=== PATIENT | female | born 1990 | race Caucasian/White ===

== ENCOUNTER 2016-10-30 11:32 | Observation (INO) | payer OTHER ==
[~2016-10-30] VITALS: Ht 162.6 cm; Wt 82.0 kg
[~2016-10-30 11:32] MED LIST: IBUP600 PO; OXYC1SOL5 PO; PRENCAP6 PO
[2016-10-30 11:33] VITALS: BP 142/92; PULSE 80; RESP 20; TEMP 98.1; O2SAT 96
--- NOTE | 2016-10-30 11:43 | PD ---
Physical Exam Time Seen by Provider: 11:42 Narrative 26 y/o female here with upper abdominal pain that radiates into the back/chest which started at 7AM. +Nausea. Vital signs reviewed. seen at triage desk. Awaiting bed placement. Data Data Last Documented VS Vital Signs Date Time Temp Pulse Resp B/P Pulse Ox O2 Delivery O2 Flow Rate FiO2 10/30/16 11:33 98.1 80 20 142/92 96 Room Air [facility] Medical Record Reviewed: Yes Supervised Visit with FER: Az Ferro Oct 30, 2016 11:43
[2016-10-30] MEDS ORDERED: SODIUM CHLOR 0.9% 1000 ML INJ 1,000 ML IV SCH (11:56)
[2016-10-30] MEDS ORDERED: MORPHINE SULFATE 4 MG/ML INJ IV PUSH ONE ×2 (12:00→12:15)
[2016-10-30] MEDS ORDERED: FAMOTIDINE 20 MG/2 ML VIAL IV PUSH ONE (12:00)
[2016-10-30] MEDS ORDERED: ONDANSETRON HCL 4 MG/2 ML VIAL IVP ONE (12:00)
--- NOTE | 2016-10-30 12:04 | PD ---
HPI Chief Complaint: Abdominal Pain Time Seen by Provider: 13:42 Travel History International Travel<30 days: No Contact w/Intl Traveler<30days: No Traveled to known affect area: No History of Present Illness HPI 26- year old female presents to the ED complaining of RUQ abdominal pain. She reports the pain started yesterday afternoon, but worsened this morning around 7am. She describes the pain as constant, rates it as a 6-8/10, nothing makes the pain better or worse, and it radiates to the her chest and back. She reports that she has a history of gallstones and usually takes Tylenol and it makes it better. She states she has taken 4 Tylenol prior to arrival but had no relief. She reports nausea associated with the pain, but denies any vomiting, diarrhea, or constipation. Her last BM was two days ago and reports that is normal for her. She smokes 1/2 ppd, and denies any alcohol, or drug use. PFSH Past Medical History Asthma: Yes ?: Not LMP: 10/02/16 Past Surgical History Section: Yes Social History Alcohol Use: No Tobacco Use: Yes (1/2 pack a day ) Substance Use: No Allergies-Medications (Allergen,Severity, Reaction): Coded Allergies: No Known Allergies (Unverified , 10/30/16) Reported Meds & Prescriptions Reported Meds & Active Scripts Active No Active Prescriptions or Reported Medications Review of Systems General / Constitutional: No: Fever, Chills, Weight Gain, Weight Loss, Other Eyes: No: Diploplia, Blurred Vision, Photophobia, Drainage, Redness, Foreign Body Sensation, Pain, Tearing, Blind Spots, Visual changes, Blindness, Other HENT: No: Headaches, Vertigo, Lightheadedness, Sore Throat, Rhinitis, Rhinorrhea, Congestion, Nosebleed, Neck Stiffness, Neck Pain, Masses, Gingival Bleeding, Dental Difficulties, Ear Discharge, Earache, Other Cardiovascular: No: Chest Pain or Discomfort, Palpitations, Irregular Rhythm, Tachycardia, Diaphoresis, Syncope, Dyspnea on exertion, Varicosities, Edema, Cyanosis, Varicosities, Phlebitis, Claudication, Other Respiratory: No: Cough, Shortness of Breath, Wheezing, Sneezing, Orthopnea, Hemoptysis, Stridor, Night Sweats, Pleuritic Pain, Other Gastrointestinal: Positive: Nausea, Abdominal Pain, No: Vomiting, Diarrhea, Hematemesis, Hematochezia, Constipation, Changes in Bowel Habits, Indigestion, Dysphagia, Loss of Appetite, Other Genitourinary: No: Urgency, Frequency, Dysuria, Nocturia, Hematuria, Decreased Urinary Output, Oliguria, Hesitancy, Dribbling, Incontinence, Pelvic Pain, Flank Pain, Dyspareunia, Discharge, Dysmenorrhea, Menorrhagia, Metorrhagia, Vaginal Bleeding, Other Musculoskeletal: Positive: Pain, No: Myalgias, Arthralgias, Limited ROM, Weakness, Cramping, Edema, Atrophy Skin: No Rash, No Itching, No Dryness, No Lumps, No Hives, No Change in Pigmentation, No Change in nails, No Alopecia, No Lesions, No Breast Lumps, No Breast Tenderness, No Breast Swelling, No Other Neurologic: No: Weakness, Dizziness, Syncope, Focal Abnormalities, Coordination Problem, Tremor, Ataxia, Headache, Change in Mentation, Slurred Speech, Paresthesia, Incontinence, Seizures, Sensory Disturbance, Other Physical Exam Narrative GENERAL: SKIN: Warm and dry. HEAD: Atraumatic. Normocephalic. EYES: Pupils equal and round. No scleral icterus. No injection or drainage. ENT: No nasal bleeding or discharge. Mucous membranes pink and moist. NECK: Trachea midline. No JVD. CARDIOVASCULAR: Regular rate and rhythm. No S3, S4, murmurs, rubs, gallops, or clicks. RESPIRATORY: No accessory muscle use. Clear to auscultation. Breath sounds equal bilaterally. GASTROINTESTINAL: Tender to palpation in RUQ with positive murphis sign on exam. Abdomen soft, nondistended. Hepatic and splenic margins not palpable. MUSCULOSKELETAL: Extremities without clubbing, cyanosis, or edema. No obvious deformities. NEUROLOGICAL: Awake and alert. No obvious cranial nerve deficits. Motor grossly within normal limits. Five out of 5 muscle strength in the arms and legs. Normal speech. PSYCHIATRIC: Appropriate mood and affect; insight and judgment normal. Data Data Last Documented VS Vital Signs Date Time Temp Pulse Resp B/P Pulse Ox O2 Delivery O2 Flow Rate FiO2 10/30/16 13:25 97.8 78 16 136/69 99 Room Air Orders Complete Blood Count With Diff (10/30/16 11:56) Comprehensive Metabolic Panel (10/30/16 11:56) Lipase (10/30/16 11:56) Lactic Acid (10/30/16 11:56) Urinalysis - C+S If Indicated (10/30/16 11:56) Iv Access Insert/Monitor (10/30/16 11:56) Morphine Inj (Morphine Inj) (10/30/16 12:00) Ondansetron Inj (Zofran Inj) (10/30/16 12:00) Sodium Chlor 0.9% 1000 Ml Inj (Ns 1000 M (10/30/16 11:56) Famotidine Inj (Pepcid Inj) (10/30/16 12:00) Us Abdomen Gallbladder (10/30/16 ) Morphine Inj (Morphine Inj) (10/30/16 12:15) Piperacil-Tazo 3.375 Gm Premix (Zosyn 3. (10/30/16 13:30) Admit Order (Ed Use Only) (10/30/16 13:37) Hydromorphone Pf Inj (Dilaudid Pf Inj) (10/30/16 13:45) Labs Laboratory Tests Test 10/30/16 10/30/16 12:14 12:20 White Blood Count 11.8 TH/MM3 Red Blood Count 4.86 MIL/MM3 Hemoglobin 13.0 GM/DL Hematocrit 39.5 % Mean Corpuscular Volume 81.3 FL Mean Corpuscular Hemoglobin 26.8 PG Mean Corpuscular Hemoglobin 32.9 % Concent Red Cell Distribution Width 14.5 % Platelet Count 303 TH/MM3 Mean Platelet Volume 8.7 FL Neutrophils (%) (Auto) 62.5 % Lymphocytes (%) (Auto) 27.7 % Monocytes (%) (Auto) 7.4 % Eosinophils (%) (Auto) 2.0 % Basophils (%) (Auto) 0.4 % Neutrophils # (Auto) 7.4 TH/MM3 Lymphocytes # (Auto) 3.3 TH/MM3 Monocytes # (Auto) 0.9 TH/MM3 Eosinophils # (Auto) 0.2 TH/MM3 Basophils # (Auto) 0.0 TH/MM3 CBC Comment DIFF FINAL Differential Comment Urine Color YELLOW Urine Turbidity HAZY Urine pH 5.5 Urine Specific [place] 1.029 Urine Protein TRACE mg/dL Urine Glucose (UA) NEG mg/dL Urine Ketones NEG mg/dL Urine Occult Blood NEG Urine Nitrite NEG Urine Bilirubin NEG Urine Urobilinogen LESS THAN 2.0 MG/DL Urine Leukocyte Esterase MOD Urine RBC 2 /hpf Urine WBC 5 /hpf Urine Squamous Epithelial 26 /hpf Cells Urine Bacteria RARE /hpf Urine Mucus FEW /lpf Microscopic Urinalysis Comment CULT NOT INDICATED Sodium Level 141 MEQ/L Potassium Level 4.8 MEQ/L Chloride Level 105 MEQ/L Carbon Dioxide Level 30.5 MEQ/L Anion Gap 6 MEQ/L Blood Urea Nitrogen 15 MG/DL Creatinine 0.75 MG/DL Estimat Glomerular Filtration 93 ML/MIN Rate Random Glucose 98 MG/DL Calcium Level 9.0 MG/DL Total Bilirubin 0.3 MG/DL Aspartate Amino Transf 108 U/L (AST/SGOT) Alanine Aminotransferase 224 U/L (ALT/SGPT) Alkaline Phosphatase 134 U/L Total Protein 7.6 GM/DL Albumin 3.9 GM/DL Lipase 103 U/L Lactic Acid Level 2.0 mmol/L MDM Medical Decision Making Medical Screen Exam Complete: Yes Emergency Medical Condition: Yes Medical Record Reviewed: Yes Interpretation(s) CBC & BMP Diagram 10/30/16 12:14 LFTs elevated Lipase WNL Last Impressions Gall Bladder Ultrasound 10/30/16 0000 Signed Impressions: Service Date/Time: October 12:32 - CONCLUSION: 1. Abnormal gallbladder containing stones and sludge with positive sonographic Marie's sign. Findings are suspicious for acute cholecystitis. 2. Mild hepatomegaly. Ulises Machado MD Differential Diagnosis Cholelithiasis Pancreatitis Nephrolithiasis Gastritis PUD Narrative Course 26-year-old female that presents to the ED for evaluation of right upper quadrant pain. Patient was properly examined and was found to have signs and symptoms very consistent what appears to be acute cholecystitis. Labs and imaging confirmed diagnosis. Case was discussed with Dr. Agosto who agrees admission to his service. Case was discussed with . labs were evaluated the patient and agrees with the plan. Patient and family were told of need for surgery and likely removal of the gallbladder to improve symptoms. They're in agreement with admission plan. Diagnosis Primary Impression: Acute cholecystitis Additional Impression: Cholelithiasis Qualified Code: K80.62 - Calculus of gallbladder and bile duct with acute cholecystitis without obstruction Admitting Information Admitting Physician Requests: Admit Scripts No Active Prescriptions or Reported Meds Jason Verduzco Oct 30, 2016 12:04
[2016-10-30 12:42] LABS: AUTOMATED NEUTROPHIL # 7.4 TH/MM3 (1.8-7.7); BASOPHIL % 0.4 % (0.0-2.0); EOSINOPHIL # 0.2 TH/MM3 (0-0.4); HEMATOCRIT 39.5 % (35.0-46.0); HEMO FLAGS DIFF FINAL; LYMPH % 27.7 % (9.0-44.0); LYMPHOCYTE # 3.3 TH/MM3 (1.0-4.8); MEAN CELL VOLUME 81.3 FL (80.0-100.0); MEAN CORPUSCULAR HEMOGLOBIN 26.8 PG (27.0-34.0); MEAN CORPUSCULAR HGB CONC 32.9 % (32.0-36.0); MONO % 7.4 % (0.0-8.0); NEUT % 62.5 % (16.0-70.0); PLATELET COUNT 303 TH/MM3 (150-450); RED BLOOD COUNT 4.86 MIL/MM3 (4.00-5.30); RED CELL DISTRIBUTION WIDTH 14.5 % (11.6-17.2); WHITE BLOOD COUNT 11.8 TH/MM3 (4.0-11.0)
[2016-10-30 12:45] LABS: BACTERIA, URINE RARE /hpf; BLOOD, URINE NEG (NEG); COMMENT (UR) CULT NOT INDICATED; CULTURE IF INDICATED CULT NOT INDICATED; GLUCOSE,URINE NEG (NEG); KETONE, URINE NEG (NEG); MUCUS URINE FEW /lpf (OCC); NITRITE,URINE NEG (NEG); PH, URINE 5.5 (5.0-8.5); SQUAMOUS EPITHELIAL CELL URINE 26 /hpf (0-5); URINE COLOR YELLOW (YELLW/STRAW)
--- NOTE | 2016-10-30 13:10 | RADRPT ---
EXAM DATE/TIME: 10/30/2016 12:32 [facility] COMPARISON: No previous studies available for comparison. INDICATIONS : Abdominal pain with nausea since this morning. MEDICAL HISTORY : Asthma. SURGICAL HISTORY : section. ENCOUNTER: Initial ACUITY: 1 day PAIN SCORE: 8/10 LOCATION: Right upper quadrant MEASUREMENTS: LIVER: 21.1 cm length COMMON DUCT: 4 mm RIGHT KIDNEY: 12.2 x 5.3 x 5.0 cm FINDINGS: LIVER: Normal echotexture without focal lesion or ductal dilatation. Main portal vein is patent with hepatop edal blood flow. COMMON DUCT: No intraluminal mass or stone visualized. GALLBLADDER: There are stones and sludge within the gallbladder. The wall thickness measures 4 mm. There is no per icholecystic fluid. Shackler reports a positive sonographic Marie sign. PANCREAS: The visualized portions are within normal limits. RIGHT KIDNEY: No evidence of hydronephrosis, stone, or mass. CONCLUSION: 1. Abnormal gallbladder containing stones and sludge with positive sonographic Marie's sign. Finding s are suspicious for acute cholecystitis. 2. Mild hepatomegaly. Ulises Machado MD on October 30, 2016 at 13:06 Board Certified Radiologist. This report was verified electronically.
[2016-10-30 13:25] VITALS: BP 136/69; PULSE 78; RESP 16; TEMP 97.8; O2SAT 99
[2016-10-30 13:27] LABS: ALT (GPT) 224 U/L (10-53); ANION GAP 6 MEQ/L (5-15); AST (GOT) 108 U/L (15-37); BICARBONATE 30.5 MEQ/L (21.0-32.0); BLOOD UREA NITROGEN 15 MG/DL (7-18); CHLORIDE 105 MEQ/L (98-107); GLOMERULAR FILTRATION RATE 93 ML/MIN (>89); POTASSIUM 4.8 MEQ/L (3.5-5.1); SODIUM (NA) 141 MEQ/L (136-145)
[2016-10-30 13:29] LABS: ALKALINE PHOSPHATASE 134 U/L (45-117); TOTAL BILIRUBIN ADULT 0.3 MG/DL (0.2-1.0)
--- NOTE | 2016-10-30 13:29 | PD ---
Physical Exam Narrative I, Dr. Lynn, have reviewed the advance practice practitioner's documentation and am in agreement, met with the patient face to face, made the diagnosis, and the medical decision making was done by me. *My assessment and Findings: Acute cholecystitis vs. biliary colic vs. pancreatitis 26yo F with PMH of cholelithiasis presents to the ED with c/o RUQ that started last night. Pain went away but return this morning. Pain is in RUQ and radiates to right upper back. +Nausea. Denies any fever, vomiting. Labs reviewed, WBC 11.8. Lactic acid 2.0. UA showed moderate leukocyte. Culture not indicated. US gallbladder showed abnormal bladder containing stones and sludge with positive sonographic Marie's sign. Findings suspicious for acute cholecystitis. My PA discussed with general surgeon Dr. Agosto and will be admitted to his service. IV zosyn ordered. Data Data Last Documented VS Vital Signs Date Time Temp Pulse Resp B/P Pulse Ox O2 Delivery O2 Flow Rate FiO2 10/30/16 12:18 16 10/30/16 11:33 98.1 80 142/92 96 Room Air Orders Complete Blood Count With Diff (10/30/16 11:56) Comprehensive Metabolic Panel (10/30/16 11:56) Lipase (10/30/16 11:56) Lactic Acid (10/30/16 11:56) Urinalysis - C+S If Indicated (10/30/16 11:56) Iv Access Insert/Monitor (10/30/16 11:56) Morphine Inj (Morphine Inj) (10/30/16 12:00) Ondansetron Inj (Zofran Inj) (10/30/16 12:00) Sodium Chlor 0.9% 1000 Ml Inj (Ns 1000 M (10/30/16 11:56) Famotidine Inj (Pepcid Inj) (10/30/16 12:00) Us Abdomen Gallbladder (10/30/16 ) Morphine Inj (Morphine Inj) (10/30/16 12:15) Piperacil-Tazo 3.375 Gm Premix (Zosyn 3. (10/30/16 13:30) Labs Laboratory Tests Test 10/30/16 10/30/16 12:14 12:20 White Blood Count 11.8 TH/MM3 Red Blood Count 4.86 MIL/MM3 Hemoglobin 13.0 GM/DL Hematocrit 39.5 % Mean Corpuscular Volume 81.3 FL Mean Corpuscular Hemoglobin 26.8 PG Mean Corpuscular Hemoglobin 32.9 % Concent Red Cell Distribution Width 14.5 % Platelet Count 303 TH/MM3 Mean Platelet Volume 8.7 FL Neutrophils (%) (Auto) 62.5 % Lymphocytes (%) (Auto) 27.7 % Monocytes (%) (Auto) 7.4 % Eosinophils (%) (Auto) 2.0 % Basophils (%) (Auto) 0.4 % Neutrophils # (Auto) 7.4 TH/MM3 Lymphocytes # (Auto) 3.3 TH/MM3 Monocytes # (Auto) 0.9 TH/MM3 Eosinophils # (Auto) 0.2 TH/MM3 Basophils # (Auto) 0.0 TH/MM3 CBC Comment DIFF FINAL Differential Comment Urine Color YELLOW Urine Turbidity HAZY Urine pH 5.5 Urine Specific [place] 1.029 Urine Protein TRACE mg/dL Urine Glucose (UA) NEG mg/dL Urine Ketones NEG mg/dL Urine Occult Blood NEG Urine Nitrite NEG Urine Bilirubin NEG Urine Urobilinogen LESS THAN 2.0 MG/DL Urine Leukocyte Esterase MOD Urine RBC 2 /hpf Urine WBC 5 /hpf Urine Squamous Epithelial 26 /hpf Cells Urine Bacteria RARE /hpf Urine Mucus FEW /lpf Microscopic Urinalysis Comment CULT NOT INDICATED Lactic Acid Level 2.0 mmol/L MDM Supervised Visit with FER: Yes Diagnosis Primary Impression: Acute cholecystitis Admitting Information Admitting Physician Requests: Admit Scripts No Active Prescriptions or Reported Meds Nuria Lynn DO Oct 30, 2016 13:29
[2016-10-30] MEDS ORDERED: PIPERACIL-TAZO 3.375 GM PREMIX 50 ML IV ONE (13:30)
[2016-10-30] MEDS ORDERED: SODIUM CHLORIDE 0.9% FLUSH 10 ML FLUSH IV FLUSH PRN (13:45)
[2016-10-30] MEDS ORDERED: ONDANSETRON HCL 4 MG/2 ML VIAL IV PRN (13:45)
[2016-10-30] MEDS ORDERED: diphenhydrAMINE HCL 50 MG/ML VIAL IV PRN (13:45)
[2016-10-30] MEDS ORDERED: HYDROmorphone HCL PF 1 MG/ML VIAL IV PUSH ONE (13:45)
[2016-10-30] MEDS ORDERED: MORPHINE SULFATE 4 MG/ML INJ IV PUSH PRN ×2 (13:45)
[2016-10-30 14:33] VITALS: BP 119/64; PULSE 86; RESP 17; TEMP 97.8; O2SAT 99
[2016-10-30] MEDS: SODIUM CHLOR 0.9% 1000 ML INJ 1,000 ML IV SCH ×2 (15:01→23:40)
[2016-10-30 16:28] VITALS: BP 102/69; TEMP 97.9
--- NOTE | 2016-10-30 16:41 | HHI.HP ---
HPI Service General Surgery Primary Care Physician Afsaneh Ibarra MD Admission Diagnosis acute cholecysititis with cholelithiasis Chief Complaint: Abdominal pain History of Present Illness 26 yo F with severe RUQ and epigastric pain. She has known gallstones since last year when she was having episodes of upper abdominal pain. She has had multiple episodes that usually last for less than 30 minutes. Yesterday she had an episode of epigastric and right upper quadrant pain associated with nausea which was quite severe. However this morning she had an even more severe episode which was worse than labor. It radiated to her right upper quadrant back and and chest. She was evaluated in the emergency department and noted to have leukocytosis and gallbladder ultrasound showed gallstones and mild wall thickness. AST ALT and alkaline phosphatase are mildly elevated. Past surgical history includes . Review of Systems Constitutional: DENIES: Fever, Chills Eyes: DENIES: Eye inflammation, Eye pain Respiratory: DENIES: Cough, Wheezing Cardiovascular: DENIES: Chest pain, Palpitations Gastrointestinal: COMPLAINS OF: Abdominal pain, Nausea Musculoskeletal: DENIES: Stiffness, Joint Swelling Integumentary: DENIES: Pruritus, Rash Neurologic: DENIES: Seizures, Tremor Past Family Social History Past Medical History None Past Surgical History Reported Medications Reported Meds & Active Scripts Active No Active Prescriptions or Reported Medications Allergies: Coded Allergies: No Known Allergies (Unverified , 10/30/16) Active Ordered Medications Current Medications Medications (Trade) Dose Ordered Sig/Dorys Route Start Time Stop Time Status Last Admin (NS 1000 ml Inj) 1,000 ml @ 100 mls/hr Q10H IV 10/30/16 13:40 10/30/16 15:01 (NS Flush) 2 ml UNSCH PRN IV FLUSH 10/30/16 13:45 Sodium Chloride 2 ml 2 ml BID IV FLUSH 10/30/16 21:00 (Zosyn 4.5 Gm Premix) 100 ml @ 200 mls/hr Q6H IV 10/30/16 18:00 (Zofran Inj) 4 mg Q6H PRN IV 10/30/16 13:45 (Benadryl Inj) 25 mg Q6H PRN IV 10/30/16 13:45 (Morphine Inj) 2 mg Q3H PRN IV PUSH 10/30/16 13:45 (Morphine Inj) 4 mg Q3H PRN IV PUSH 10/30/16 13:45 Family History noncontributory Social History Smokes half pack of cigarettes daily. No alcohol use. Physical Exam Vital Signs Vital Signs Date Time Temp Pulse Resp B/P Pulse Ox O2 Delivery O2 Flow Rate FiO2 10/30/16 14:33 97.8 86 17 119/64 99 Room Air 10/30/16 14:16 17 10/30/16 13:25 97.8 78 16 136/69 99 Room Air 10/30/16 12:18 16 10/30/16 12:10 16 10/30/16 11:33 98.1 80 20 142/92 96 Room Air Physical Exam GENERAL: Awake and alert. No acute distress. Cooperative. HEAD: Normocephalic. Atraumatic. EYES: Pupils equal round and reactive to light bilaterally. No scleral icterus. CHEST: Lungs clear to auscultation bilaterally with no wheezing or rhonchi. No respiratory distress. CARDIOVASCULAR: Regular rate and rhythm. ABDOMEN: Soft. Mild epigastric and right upper quadrant tenderness to palpation. EXTREMITIES: No cyanosis or edema. SKIN: Warm, dry, nonjaundiced. Laboratory Laboratory Tests Test 10/30/16 10/30/16 12:14 12:20 White Blood Count 11.8 Red Blood Count 4.86 Hemoglobin 13.0 Hematocrit 39.5 Mean Corpuscular Volume 81.3 Mean Corpuscular Hemoglobin 26.8 Mean Corpuscular Hemoglobin 32.9 Concent Red Cell Distribution Width 14.5 Platelet Count 303 Mean Platelet Volume 8.7 Neutrophils (%) (Auto) 62.5 Lymphocytes (%) (Auto) 27.7 Monocytes (%) (Auto) 7.4 Eosinophils (%) (Auto) 2.0 Basophils (%) (Auto) 0.4 Neutrophils # (Auto) 7.4 Lymphocytes # (Auto) 3.3 Monocytes # (Auto) 0.9 Eosinophils # (Auto) 0.2 Basophils # (Auto) 0.0 CBC Comment DIFF FINAL Differential Comment Urine Color YELLOW Urine Turbidity HAZY Urine pH 5.5 Urine Specific [place] 1.029 Urine Protein TRACE Urine Glucose (UA) NEG Urine Ketones NEG Urine Occult Blood NEG Urine Nitrite NEG Urine Bilirubin NEG Urine Urobilinogen LESS THAN 2.0 Urine Leukocyte Esterase MOD Urine RBC 2 Urine WBC 5 Urine Squamous Epithelial 26 Cells Urine Bacteria RARE Urine Mucus FEW Microscopic Urinalysis Comment CULT NOT INDICATED Sodium Level 141 Potassium Level 4.8 Chloride Level 105 Carbon Dioxide Level 30.5 Anion Gap 6 Blood Urea Nitrogen 15 Creatinine 0.75 Estimat Glomerular Filtration 93 Rate Random Glucose 98 Calcium Level 9.0 Total Bilirubin 0.3 Aspartate Amino Transf 108 (AST/SGOT) Alanine Aminotransferase 224 (ALT/SGPT) Alkaline Phosphatase 134 Total Protein 7.6 Albumin 3.9 Lipase 103 Lactic Acid Level 2.0 Result Diagram: 10/30/16 1214 10/30/16 1214 Imaging Last Impressions Gall Bladder Ultrasound 10/30/16 0000 Signed Impressions: Service Date/Time: , October 30, 2016 12:32 - CONCLUSION: 1. Abnormal gallbladder containing stones and sludge with positive sonographic Marie's sign. Findings are suspicious for acute cholecystitis. 2. Mild hepatomegaly. Ulises Machado MD Assessment and Plan Assessment and Plan 26-year-old female who has evaluation consistent with acute cholecystitis. I recommend to proceed with laparoscopic possible open cholecystectomy. I discussed details and risks of the surgery with the patient and her significant other and mother. She desires to proceed. This will be performed tomorrow morning. She will be given Zosyn overnight. Juan Agosto MD Oct 30, 2016 16:41
[2016-10-30 17:09] VITALS: BP 132/67; PULSE 78; RESP 17; TEMP 98.2; O2SAT 98
[2016-10-30] MEDS: PIPERACIL-TAZO 4.5 GM PREMIX 100 ML IV SCH ×2 (18:00→23:42)
[2016-10-30] MEDS: SODIUM CHLORIDE 0.9% FLUSH 10 ML FLUSH IV FLUSH SCH (19:47)
[2016-10-30 20:00] VITALS: BP 139/71; PULSE 79; RESP 17; TEMP 96.2; O2SAT 98
[2016-10-31] VITALS: BP 126/65; PULSE 60; RESP 17; TEMP 96.8; O2SAT 98
[2016-10-31] MEDS: PIPERACIL-TAZO 4.5 GM PREMIX 100 ML IV SCH ×2 (05:06→10:44)
[2016-10-31] MEDS ORDERED: SODIUM CHLORID 0.9% 500 ML IV PRN (05:15)
[2016-10-31] MEDS ORDERED: LACTATED RINGER'S 1000 ML IV PRN (05:15)
[2016-10-31 06:12] LABS: INDIRECT BILIRUBIN 0.4 MG/DL (0.0-0.8); TOTAL BILIRUBIN ADULT 0.5 MG/DL (0.2-1.0)
[2016-10-31 08:00] VITALS: BP 109/53; PULSE 66; RESP 17; TEMP 97.7; O2SAT 97
[2016-10-31] MEDS ORDERED: ACETAMINOPHEN 1000 MG/100 ML VIAL IV ONE (08:44)
[2016-10-31] MEDS ORDERED: fentaNYL CITRATE 250 MCG/5 ML AMP ONE (08:44)
[2016-10-31] MEDS: SODIUM CHLORIDE 0.9% FLUSH 10 ML FLUSH IV FLUSH SCH (09:00)
[2016-10-31] MEDS ORDERED: FAMOTIDINE 20 MG/2 ML VIAL ONE (10:03)
[2016-10-31] MEDS ORDERED: MIDAZOLAM HCL 2 MG/2 ML VIAL ONE (10:03)
[2016-10-31] MEDS ORDERED: BUPIVACAINE/EPINEPHRINE 0.25% PF 30 ML VIAL INFIL ONE (10:28)
--- NOTE | 2016-10-31 11:10 | PD.OP ---
cc: Juan Agosto MD Operative Report Date of Surgery: Oct 31, 2016 Preoperative Diagnosis: (1) Acute cholecystitis Postoperative Diagnosis: (1) Acute cholecystitis Procedure: Laparoscopic cholecystectomy Anesthesia: GETA Surgeon: Juan Agosto Advertising Rep(s): Bill [employer]ILDING [employer] Operation and Findings: Complications: None apparent EBL: 10 cc Operative findings: The gallbladder was enlarged and inflamed with very edematous and thickened gallbladder wall. There were multiple large stones present. Procedure in detail: The patient was taken to the operating room and placed in the supine position. General endotracheal anesthesia was induced. The abdomen was prepped and draped in usual sterile fashion and a surgical timeout was performed to verify correct patient procedure and site. Appropriate perioperative antibiotics were administered. Local anesthetic was injected in the skin and subcutaneous tissue superior to the umbilicus and a 5 mm incision performed. The abdomen was entered using the Optiview 5 mm trocar with direct laparoscopic visualization. The abdomen was then insufflated to 15 mmHg with CO2 gas which the patient tolerated well. Next a 12 mm port was placed in the epigastrium and two 5 mm ports in the right upper quadrant and right lateral abdomen. The patient was placed in reverse Trendelenburg position and turned slightly to the left. Attention was turned to the right upper quadrant and the dome of the gallbladder was grasped and retracted cephalad. The gallbladder was very large with a very edematous wall and multiple large stones present. The infundibulum was retracted laterally to expose Calot's triangle. Blunt dissection and judicious use of electrocautery was used to expose the cystic duct and the cystic artery directly entering the gallbladder. Two clips were placed proximally on each of these structures and one distally and they were transected. The gallbladder was then removed from the liver bed using electrocautery. Hemostasis was achieved. The gallbladder was then removed from the abdomen using an Endo Catch bag. The clips were in place on the cystic duct and cystic artery stumps with no bleeding or bile leakage. The 12 mm port site fascia was closed with a fascial closure device using 0 Vicryl suture. At this point, the abdomen was allowed to desufflate and trochars were removed. Skin was closed with subcuticular 4-0 Monocryl as well as Dermabond. The patient tolerated the procedure well and was extubated and taken to PACU in stable condition. All sponge and instrument counts were correct. Juan Agosto MD Oct 31, 2016 11:10
[2016-10-31] MEDS ORDERED: HYDR-3516 PO (11:12)
[2016-10-31] MEDS ORDERED: ACETAMINOPHEN/HYDROcodone 325 MG/5 MG TAB PO PRN (11:15)
[2016-10-31] MEDS ORDERED: DO NOT ADM ANY ANTICOAGULANT DRUGS PRN (11:23)
[2016-10-31] MEDS ORDERED: *PROMETHAZINE 25 MG/ML VIAL PERIprocedural use ONLY ONE (11:37)
[2016-10-31] MEDS ORDERED: *morphine SULFATE 8 MG/ML PERIprocedure ONLY ONE (11:48)
[2016-10-31] MEDS ORDERED: PIPERACILLIN TAZO IV ONE (12:00)
[2016-10-31] MEDS ORDERED: LACTATED RINGER'S 1000 ML INJ 1,000 ML IV ONE (12:00)
[2016-10-31] MEDS ORDERED: PROPOFOL 200 MG/20 ML AMP IV ONE (12:00)
[2016-10-31] MEDS ORDERED: ONDANSETRON HCL 4 MG/2 ML VIAL IV PUSH ONE (12:00)
[2016-10-31] MEDS ORDERED: NEOSTIGMINE 3 MG/3 ML SYR IV ONE (12:00)
[2016-10-31] MEDS: ACETAMINOPHEN/HYDROcodone 325 MG/5 MG TAB PO PRN ×2 (12:39→18:03)
[2016-10-31 16:00] VITALS: BP 117/59; PULSE 66; RESP 18; TEMP 96.5; O2SAT 97
== END 2016-10-31 18:12 | disposition home or self-care (01) ==
LOC: NEPD 11:32 → NEDA 13:39 → N07B 16:52
PROVIDERS: ADMIT Surgery; ATTEND Surgery
PROC: 0FT44ZZ Resection of Gallbladder, Percutaneous Endoscopic Approach (ICD-10-PCS; principal; 2016-10-30)
DX: K80.12 Calculus of gallbladder with acute and chronic cholecystitis without obstruction (principal)
CPT/HCPCS: 00790; 47562; 76705; 80053; 80076; 81001; 83605; 83690; 85025; 88304; 96361; 96365; 96375; 96376; 99285; G0378; J0131; J1170; J2250; J2270; J2405; J2543; J2550; J2710; J3010; J7030; J7120

== ENCOUNTER 2017-04-29 22:40 | Emergency (ER) | payer OTHER ==
[~2017-04-29] VITALS: Ht 165.1 cm; Wt 88.0 kg
[~2017-04-29 22:40] MED LIST changes: +HYDR-3516 PO; -IBUP600 PO; -OXYC1SOL5 PO; -PRENCAP6 PO
[2017-04-29 22:42] VITALS: BP 146/69; PULSE 77; RESP 16; TEMP 98.7; O2SAT 97
[2017-04-29] MEDS ORDERED: PRENTAB7 PO (22:52)
--- NOTE | 2017-04-29 23:08 | PD ---
HPI Chief Complaint: Abdominal Pain Time Seen by Provider: 23:05 Travel History International Travel<30 days: No Contact w/Intl Traveler<30days: No Traveled to known affect area: No History of Present Illness HPI 27-year-old female presents to the emergency department by private transportation for complaint of multiple episodes of nausea and vomiting. Patient is 8 weeks . Patient is followed by Dr. Ibarra. Patient is 5 para 1 AB 3. No fever no chills no cough no congestion. Patient's had nausea and vomiting and upper abdominal discomfort. Patient is status post cholecystectomy. Patient denies hematemesis coffee-ground emesis or bilious emesis. No dysuria frequency or urgency. Patient has had no lower abdominal pain pelvic pain vaginal discharge vaginal bleeding or fluid leak. Epigastric discomfort is 1/10 in intensity. PFSH Past Medical History Narrative Medical Asthma, preeclampsia, AB 3; , cholecystectomy; no tobacco use: Nursing notes reviewed Asthma: Yes Diminished Hearing: No Musculoskeletal: No Neurologic: No Respiratory: Yes Tetanus Vaccination: Unknown Influenza Vaccination: No ?: LMP: 03/05/2017 Past Surgical History Section: Yes Cholecystectomy: Yes Pacemaker: No Social History Alcohol Use: No Tobacco Use: Yes (weaning off smoking) Substance Use: No Allergies-Medications (Allergen,Severity, Reaction): Coded Allergies: No Known Allergies (Unverified Adverse Reaction, Unknown, 04/29/17) Reported Meds & Prescriptions Reported Meds & Active Scripts Active Reported Vitamins Tablet (Pnv No.95/Ferrous Fum/Folic AC) 28 Mg Iron-800 Mcg Tablet 1 Tab PO DAILY Review of Systems Except as stated in HPI: all other systems reviewed are Neg Physical Exam Narrative GENERAL: Well-developed well-nourished obese female in no acute distress no respiratory distress SKIN: Warm and dry. HEAD: Normocephalic. EYES: No scleral icterus. No injection or drainage. NECK: Supple, trachea midline. No JVD or lymphadenopathy. CARDIOVASCULAR: Regular rate and rhythm without murmurs, gallops, or rubs. RESPIRATORY: Breath sounds equal bilaterally. No accessory muscle use. GASTROINTESTINAL: Abdomen soft, non-tender, nondistended. MUSCULOSKELETAL: No cyanosis, or edema. BACK: Nontender without obvious deformity. No CVA tenderness. Data Data Last Documented VS Vital Signs Date Time Temp Pulse Resp B/P (MAP) Pulse Ox O2 Delivery O2 Flow Rate FiO2 04/30/17 00:20 79 16 123/74 (90) 99 Room Air 04/29/17 22:42 98.7 Orders Orders Complete Blood Count With Diff (04/29/17 23:05) Comprehensive Metabolic Panel (04/29/17 23:05) Urinalysis - C+S If Indicated (04/29/17 23:05) Us Abdomen Liver (04/30/17 ) Lipase (04/29/17 23:15) Labs Laboratory Tests Test 04/29/17 23:15 04/29/17 23:58 White Blood Count 10.3 TH/MM3 Red Blood Count 4.76 MIL/MM3 Hemoglobin 13.6 GM/DL Hematocrit 39.5 % Mean Corpuscular Volume 82.9 FL Mean Corpuscular Hemoglobin 28.6 PG Mean Corpuscular Hemoglobin Concent 34.5 % Red Cell Distribution Width 15.2 % Platelet Count 275 TH/MM3 Mean Platelet Volume 8.4 FL Neutrophils (%) (Auto) 53.4 % Lymphocytes (%) (Auto) 37.6 % Monocytes (%) (Auto) 6.6 % Eosinophils (%) (Auto) 1.8 % Basophils (%) (Auto) 0.6 % Neutrophils # (Auto) 5.5 TH/MM3 Lymphocytes # (Auto) 3.9 TH/MM3 Monocytes # (Auto) 0.7 TH/MM3 Eosinophils # (Auto) 0.2 TH/MM3 Basophils # (Auto) 0.1 TH/MM3 CBC Comment DIFF FINAL Differential Comment Blood Urea Nitrogen 10 MG/DL Creatinine 0.61 MG/DL Random Glucose 110 MG/DL Total Protein 7.2 GM/DL Albumin 3.6 GM/DL Calcium Level 8.8 MG/DL Alkaline Phosphatase 160 U/L Aspartate Amino Transf (AST/SGOT) 552 U/L Alanine Aminotransferase (ALT/SGPT) 443 U/L Total Bilirubin 0.3 MG/DL Sodium Level 138 MEQ/L Potassium Level 4.1 MEQ/L Chloride Level 105 MEQ/L Carbon Dioxide Level 25.6 MEQ/L Anion Gap 7 MEQ/L Estimat Glomerular Filtration Rate 118 ML/MIN Lipase 111 U/L Urine Color YELLOW Urine Turbidity HAZY Urine pH 6.0 Urine Specific [place] 1.015 Urine Protein NEG mg/dL Urine Glucose (UA) NEG mg/dL Urine Ketones NEG mg/dL Urine Occult Blood NEG Urine Nitrite NEG Urine Bilirubin NEG Urine Urobilinogen LESS THAN 2.0 MG/DL Urine Leukocyte Esterase SMALL Urine RBC 1 /hpf Urine WBC 2 /hpf Urine Squamous Epithelial Cells 15 /hpf Urine Amorphous Sediment RARE Urine Bacteria RARE /hpf Urine Mucus FEW /lpf Microscopic Urinalysis Comment CULT NOT INDICATED MDM Medical Decision Making Medical Screen Exam Complete: Yes Emergency Medical Condition: Yes Medical Record Reviewed: Yes ( (A+)) Interpretation(s) CBC & BMP Diagram 04/29/17 23:15 Total Protein 7.2, Albumin 3.6, Calcium Level 8.8, Alkaline Phosphatase 160 H, Aspartate Amino Transf (AST/SGOT) 552 H, Alanine Aminotransferase (ALT/SGPT) 443 H, Total Bilirubin 0.3 Vital Signs Date Time Temp Pulse Resp B/P (MAP) Pulse Ox O2 Delivery O2 Flow Rate FiO2 04/30/17 00:20 79 16 123/74 (90) 99 Room Air 04/29/17 22:42 98.7 77 16 146/69 (94) 97 Last Impressions Liver Ultrasound 04/30/17 0000 Signed Impressions: Service Date/Time: April 00:58 - CONCLUSION: 1. Postoperative cholecystectomy. Exam otherwise unremarkable. Gregorio Smith MD Differential Diagnosis Vomiting in ; hyperemesis gravidarum, viral process Narrative Course Specimens collected and sent for resulting Patient denies nausea or vomiting at this time no and paramedics administered Patient identified to have elevated transaminases ultrasound of the liver ordered Ultrasound liver shows no acute process patient is status post cholecystectomy Bedside ultrasound performed by hi using curvilinear probe in the transverse and sagittal views shows intrauterine with heart rate of 142 Patient be given prescription for Zofran is encouraged to follow-up with her OB/ [facility] regarding elevated AST and ALT of unclear etiology; patient does not take excessive acetaminophen she is in her first trimester is normotensive does not fit criteria for help or eclampsia/preeclampsia does not consume alcohol possible medication versus viral related elevation of AST and ALT will require repeat levels to be collected and assessed. Patient is aware of liver enzyme elevation and close follow-up needed with primary care/[facility] Diagnosis Primary Impression: Qualified Codes: Z3A.01 - Less than 8 weeks gestation of Additional Impressions: Vomiting during Elevated transaminase level Referrals: Afsaneh Ibarra MD 1 day Patient Instructions: General Instructions Additional Instructions: Increase fluid hydration Takes Zofran as prescribed as needed for nausea and/or vomiting Follow-up with your primary care/senior controller call office in a.m. to schedule follow-up appointment Repeat liver enzymes Avoid acetaminophen use Return to the emergency department for any concerns or change in condition Med/Other Pt SpecificInfo: Prescription(s) given Scripts Ondansetron Odt (Zofran Odt) 4 Mg Tab 4 MG SL Q6HR Y for Nausea/Vomiting, #10 TAB 0 Refills Prov: Kristina Fitzpatrick MD 04/30/17 Disposition: 01 DISCHARGE HOME Condition: Stable Kristina Fitzpatrick MD Apr 29, 2017 23:08
[2017-04-29 23:25] LABS: AUTOMATED NEUTROPHIL # 5.5 TH/MM3 (1.8-7.7); BASOPHIL # 0.1 TH/MM3 (0-0.2); BASOPHIL % 0.6 % (0.0-2.0); EOSINOPHIL # 0.2 TH/MM3 (0-0.4); EOSINOPHIL % 1.8 % (0.0-4.0); HEMATOCRIT 39.5 % (35.0-46.0); HEMOGLOBIN 13.6 GM/DL (11.6-15.3); LYMPH % 37.6 % (9.0-44.0); LYMPHOCYTE # 3.9 TH/MM3 (1.0-4.8); MEAN CELL VOLUME 82.9 FL (80.0-100.0); MEAN CORPUSCULAR HEMOGLOBIN 28.6 PG (27.0-34.0); MEAN CORPUSCULAR HGB CONC 34.5 % (32.0-36.0); MEAN PLATELET VOLUME 8.4 FL (7.0-11.0); MONO % 6.6 % (0.0-8.0); MONOCYTE # 0.7 TH/MM3 (0-0.9); NEUT % 53.4 % (16.0-70.0); PLATELET COUNT 275 TH/MM3 (150-450); RED BLOOD COUNT 4.76 MIL/MM3 (4.00-5.30); RED CELL DISTRIBUTION WIDTH 15.2 % (11.6-17.2); WHITE BLOOD COUNT 10.3 TH/MM3 (4.0-11.0)
[2017-04-29 23:54] LABS: ALBUMIN 3.6 GM/DL (3.4-5.0); ALT (GPT) 443 U/L (10-53); AST (GOT) 552 U/L (15-37); BICARBONATE 25.6 MEQ/L (21.0-32.0); BLOOD UREA NITROGEN 10 MG/DL (7-18); CALCIUM 8.8 MG/DL (8.5-10.1); CHLORIDE 105 MEQ/L (98-107); CREATININE 0.61 MG/DL (0.50-1.00); GLOMERULAR FILTRATION RATE 118 ML/MIN (>89); GLUCOSE,RANDOM 110 MG/DL (74-106); SODIUM (NA) 138 MEQ/L (136-145)
[2017-04-29 23:56] LABS: ALKALINE PHOSPHATASE 160 U/L (45-117); TOTAL BILIRUBIN ADULT 0.3 MG/DL (0.2-1.0); TOTAL PROTEIN 7.2 GM/DL (6.4-8.2)
[2017-04-30 00:08] LABS: AMORPHOUS SEDIMENT, URINE RARE; BACTERIA, URINE RARE /hpf; BILIRUBIN, URINE NEG (NEG); BLOOD, URINE NEG (NEG); GLUCOSE,URINE NEG (NEG); KETONE, URINE NEG (NEG); MUCUS URINE FEW /lpf (OCC); NITRITE,URINE NEG (NEG); SQUAMOUS EPITHELIAL CELL URINE 15 /hpf (0-5); URINE COLOR YELLOW (YELLW/STRAW); URINE LEUKOCYTE ESTERASE SMALL (NEG)
[2017-04-30 00:20] VITALS: BP 123/74; PULSE 79; RESP 16; O2SAT 99
[2017-04-30 00:20] LABS: LIPASE 111 U/L (73-393)
--- NOTE | 2017-04-30 01:56 | RADRPT ---
EXAM DATE/TIME: 04/30/2017 00:58 [facility] COMPARISON: No previous studies available for comparison. INDICATIONS : Increased lab values. MEDICAL HISTORY : . Asthma. SURGICAL HISTORY : Cholecystectomy. section. ENCOUNTER: Initial ACUITY: 1 day PAIN SCORE: 3/10 LOCATION: Right upper quadrant MEASUREMENTS: LIVER: 19.2 cm length COMMON DUCT: 3 mm RIGHT KIDNEY: 12.8 x 4.0 x 6.6 cm SPLEEN: 12.8 cm length FINDINGS: LIVER: Normal echotexture without focal lesion or ductal dilatation. COMMON DUCT: No intraluminal mass or stone visualized. GALLBLADDER: Surgically absent. PANCREAS: The visualized portions are within normal limits. RIGHT KIDNEY: No hydronephrosis, stone or mass. SPLEEN: No focal lesion. CONCLUSION: 1. Postoperative cholecystectomy. Exam otherwise unremarkable. Gregorio Smith MD on April 30, 2017 at 1:53 Board Certified Radiologist. This report was verified electronically.
[2017-04-30] MEDS ORDERED: ZOFR4TAB3 SL (02:42)
== END 2017-04-30 03:26 | disposition home or self-care (01) ==
LOC: NEPC 22:40
DX: O21.9 Vomiting of pregnancy, unspecified (principal); Z3A.08 8 weeks gestation of pregnancy
CPT/HCPCS: 76705; 80053; 81001; 83690; 85025; 99284

== ENCOUNTER 2017-08-29 14:03 | Emergency (ER) | payer OTHER ==
[~2017-08-29] VITALS: Ht 162.6 cm; Wt 100.0 kg
[~2017-08-29 14:03] MED LIST changes: -HYDR-3516 PO; +PRENTAB7 PO; +ZOFR4TAB3 SL
[2017-08-29 14:15] VITALS: BP 148/69; PULSE 81; RESP 16; TEMP 98.1; O2SAT 98
--- NOTE | 2017-08-29 15:03 | RADRPT ---
EXAM DATE: 08/29/2017 2:57 PM EDT AGE/SEX: 27 years / Female INDICATIONS: Wrist popped out of place last night. Patient is and was shielded. CLINICAL DATA: This is the patient's initial encounter. Patient reports that signs and symptoms have been present for 2 days and indicates a pain score of 4/10. MEDICAL/SURGICAL HISTORY: . . Asthma. . Cholecystectomy. section. COMPARISON: No prior [facility] exams available for comparison. FINDINGS: Bony structures are intact and in normal alignment. Joints are intact without dislocation or signifi cant arthropathy. Osseous density is normal. Soft tissues are unremarkable. No radiopaque foreign bodies seen. CONCLUSION: Normal radiographic appearance of the right wrist. Electronically signed by: Ulises Cope MD 08/29/2017 3:01 PM EDT
[2017-08-29] MEDS ORDERED: PRED50 PO (15:20)
--- NOTE | 2017-08-29 15:20 | PD ---
HPI . Right wrist pain Chief Complaint: Injury Time Seen by Provider: 14:27 Travel History International Travel<30 days: No Contact w/Intl Traveler<30days: No Traveled to known affect area: No History of Present Illness HPI Patient presents with chief complaint of right wrist pain. 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 It did so last night. A coworker put it back in place. Since that time, she has had pain in the wrist specifically at the distal radius. Pain is exacerbated by movement. Pain is rated 4/10. PFSH Past Medical History Asthma: Yes Diminished Hearing: No Musculoskeletal: No Neurologic: No Respiratory: Yes ?: LMP: 25 WEEKS Past Surgical History Section: Yes Cholecystectomy: Yes Pacemaker: No Other Surgery: Yes Social History Alcohol Use: No Tobacco Use: Yes (weaning off smoking) Substance Use: No Allergies-Medications (Allergen,Severity, Reaction): Coded Allergies: No Known Allergies (Unverified Adverse Reaction, Unknown, 04/29/17) Reported Meds & Prescriptions Reported Meds & Active Scripts Active Zofran Odt (Ondansetron Odt) 4 Mg Tab 4 Mg SL Q6HR PRN Reported Vitamins Tablet (Pnv No.95/Ferrous Fum/Folic AC) 28 Mg Iron-800 Mcg Tablet 1 Tab PO DAILY Review of Systems Except as stated in HPI: all other systems reviewed are Neg Genitourinary: Positive: Other (25 weeks ) Physical Exam Narrative GENERAL: Awake and alert and in no acute distress. SKIN: Warm and dry. HEAD: Normocephalic/atraumatic. EYES: Pupils are equal. Extraocular movements are intact. NECK: Normal range of motion. CARDIOVASCULAR: Regular rate and rhythm. RESPIRATORY: Nonlabored respirations. MUSCULOSKELETAL: Right wrist is tender at the distal radius. Decreased range of motion. No obvious deformity. Distally neurovascularly intact. NEUROLOGICAL: Nonfocal. PSYCHIATRIC: Appropriate mood and affect. Data Data Last Documented VS Vital Signs Date Time Temp Pulse Resp B/P (MAP) Pulse Ox O2 Delivery O2 Flow Rate FiO2 08/29/17 14:15 98.1 81 16 148/69 (95) 98 Orders Orders Wrist, Complete ([id number]) (08/29/17 14:28) MDM Medical Decision Making Medical Screen Exam Complete: Yes Emergency Medical Condition: Yes Differential Diagnosis Differential diagnosis of extremity trauma includes but is not limited to fracture, sprain or strain, dislocation, contusion Narrative Course This patient presents with right wrist pain. She states that she is double jointed and that her wrist frequently slips out of place and has to be relocated. This happened last night. She presents to us today complaining with continued pain in her wrist. Last Impressions Wrist X-Ray 08/29/17 1428 Signed Impressions: CONCLUSION: Normal radiographic appearance of the right wrist. The patient will be discharged home. She is so she should take Tylenol for the pain. Ice as needed for pain and swelling. She states that she has had previous steroid injections in her wrist when this has happened. Prednisone should be safe in . Diagnosis Primary Impression: Right wrist pain Patient Instructions: General Instructions, RICE Therapy (ED) Med/Other Pt SpecificInfo: Prescription(s) given Scripts Prednisone (Prednisone) 50 Mg Tab 50 MG PO DAILY for 5 Days, #5 TAB 0 Refills Prov: Reina Mcmullen MD 08/29/17 Disposition: 01 DISCHARGE HOME Condition: Stable Reina Mcmullen MD Aug 29, 2017 15:20
== END 2017-08-29 15:28 | disposition home or self-care (01) ==
LOC: NEPD 14:03
DX: M25.531 Pain in right wrist (principal)
CPT/HCPCS: 73110; 99283

== ENCOUNTER 2017-09-17 18:07 | Emergency (ER) | payer OTHER ==
[~2017-09-17] VITALS: Ht 162.6 cm; Wt 111.0 kg
[~2017-09-17 18:07] MED LIST changes: +PRED50 PO
[2017-09-17 18:16] VITALS: BP 160/73; PULSE 91; RESP 26; TEMP 98.4; O2SAT 96
[2017-09-17] MEDS ORDERED: ASPI-516 CHEW (18:48)
[2017-09-17] MEDS ORDERED: ZOLO25TA PO (18:48)
[2017-09-17] MEDS ORDERED: SODIUM CHLORIDE 0.9% FLUSH 10 ML FLUSH IVF PRN (19:00)
[2017-09-17 19:23] VITALS: O2SAT 95
[2017-09-17] MEDS: RESP: ALBUTEROL 2.5 MG/IPRATROPIUM 0.5 MG NEB (SCH) INH (19:23)
[2017-09-17 19:30] VITALS: O2SAT 97
[2017-09-17 20:08] LABS: AUTOMATED NEUTROPHIL # 7.7 TH/MM3 (1.8-7.7); BASOPHIL # 0.1 TH/MM3 (0-0.2); BASOPHIL % 0.5 % (0.0-2.0); EOSINOPHIL # 0.5 TH/MM3 (0-0.4); EOSINOPHIL % 4.3 % (0.0-4.0); HEMATOCRIT 34.7 % (35.0-46.0); HEMOGLOBIN 11.4 GM/DL (11.6-15.3); LYMPH % 25.4 % (9.0-44.0); LYMPHOCYTE # 3.1 TH/MM3 (1.0-4.8); MEAN PLATELET VOLUME 8.1 FL (7.0-11.0); MONO % 7.2 % (0.0-8.0); MONOCYTE # 0.9 TH/MM3 (0-0.9); NEUT % 62.6 % (16.0-70.0); PLATELET COUNT 394 TH/MM3 (150-450); RED BLOOD COUNT 4.08 MIL/MM3 (4.00-5.30); RED CELL DISTRIBUTION WIDTH 13.5 % (11.6-17.2); WHITE BLOOD COUNT 12.3 TH/MM3 (4.0-11.0)
--- NOTE | 2017-09-17 20:15 | PD ---
HPI Chief Complaint: Respiratory Symptoms Time Seen by Provider: 18:51 Travel History International Travel<30 days: No Contact w/Intl Traveler<30days: No Traveled to known affect area: No History of Present Illness HPI 27-year-old female came to the emergency room with history of shortness of breath that has been going on for past 2 and half weeks. Patient has history of asthma and says she has been using her inhaler and at this point feels like she might be overusing them. She has also developed some cough and has some yellowish to greenish sputum. Patient is almost 28 weeks . No history of fever or chills. She is a smoker and still continues to smoke. Patient denies any chest pain. Denies any history of DVT or PE in the past. Denies any prolonged hospitalization or travel or immobilization prior to the symptoms starting. She was slightly tachycardic and tachypneic in triage. [facility] Past Medical History Narrative Medical List of her past medical, surgical, social and family history reviewed from the nursing note. Asthma: Yes Diminished Hearing: No Musculoskeletal: No Neurologic: No Respiratory: Yes Tetanus Vaccination: < 5 Years Influenza Vaccination: No ?: LMP: 03/05/2017 : 5 Para: 1 Miscarriage: 3 : 0 Past Surgical History Section: Yes Cholecystectomy: Yes Pacemaker: No Other Surgery: Yes Social History Alcohol Use: No Tobacco Use: Yes (1/2 PPD) Substance Use: No Allergies-Medications (Allergen,Severity, Reaction): Coded Allergies: No Known Allergies (Unverified Adverse Reaction, Unknown, 09/17/17) Comments List of her allergies reviewed from the nursing note Reported Meds & Prescriptions Reported Meds & Active Scripts Active Amoxicillin 500 Mg Cap 500 Mg PO BID 10 Days Prednisone 20 Mg Tab 20 Mg PO BID 5 Days Reported Zoloft (Sertraline HCl) 25 Mg Tab 25 Mg PO DAILY Aspirin 81 Mg Chew 81 Mg CHEW DAILY Vitamins Tablet (Pnv No.95/Ferrous Fum/Folic AC) 28 Mg Iron-800 Mcg Tablet 1 Tab PO DAILY Narrative Medication List of her home medications reviewed from the nursing note Review of Systems Except as stated in HPI: all other systems reviewed are Neg Respiratory: Positive: Cough, Shortness of Breath Physical Exam Narrative GENERAL: Awake, alert, mild distress, obese SKIN: Focused skin assessment warm/dry. HEAD: Atraumatic. Normocephalic. EYES: Pupils equal and round. No scleral icterus. No injection or drainage. ENT: No nasal bleeding or discharge. Mucous membranes pink and moist. NECK: Trachea midline. No JVD. CARDIOVASCULAR: Regular rate and rhythm. No murmur appreciated. RESPIRATORY: No accessory muscle use. End expiratory wheeze bilateral GASTROINTESTINAL: Abdomen soft, non-tender, nondistended. Hepatic and splenic margins not palpable. MUSCULOSKELETAL: No obvious deformities. No clubbing. No cyanosis. No edema. NEUROLOGICAL: Awake and alert. No obvious cranial nerve deficits. Motor grossly within normal limits. Normal speech. PSYCHIATRIC: Appropriate mood and affect; insight and judgment normal. Data Data Last Documented VS Orders Orders Complete Blood Count With Diff (09/17/17 18:57) Basic Metabolic Panel (Bmp) (09/17/17 18:57) D-Dimer (09/17/17 18:57) Troponin I (09/17/17 18:57) Iv Access Insert/Monitor (09/17/17 18:57) Electrocardiogram (09/17/17 18:57) Ecg Monitoring (09/17/17 18:57) Oximetry (09/17/17 18:57) Oxygen Administration (09/17/17 18:57) Sodium Chloride 0.9% Flush (Ns Flush) (09/17/17 19:00) Albuterol-Ipratropium Neb (Duoneb Neb) (09/17/17 19:00) Albuterol-Ipratropium Neb (Duoneb Neb) (09/17/17 21:00) Prednisone (Deltasone) (09/17/17 21:00) Ed Discharge Order (09/17/17 20:55) Labs Laboratory Tests Test 09/17/17 19:25 White Blood Count 12.3 TH/MM3 Red Blood Count 4.08 MIL/MM3 Hemoglobin 11.4 GM/DL Hematocrit 34.7 % Mean Corpuscular Volume 85.0 FL Mean Corpuscular Hemoglobin 28.0 PG Mean Corpuscular Hemoglobin Concent 33.0 % Red Cell Distribution Width 13.5 % Platelet Count 394 TH/MM3 Mean Platelet Volume 8.1 FL Neutrophils (%) (Auto) 62.6 % Lymphocytes (%) (Auto) 25.4 % Monocytes (%) (Auto) 7.2 % Eosinophils (%) (Auto) 4.3 % Basophils (%) (Auto) 0.5 % Neutrophils # (Auto) 7.7 TH/MM3 Lymphocytes # (Auto) 3.1 TH/MM3 Monocytes # (Auto) 0.9 TH/MM3 Eosinophils # (Auto) 0.5 TH/MM3 Basophils # (Auto) 0.1 TH/MM3 CBC Comment DIFF FINAL Differential Comment D-Dimer Quantitative (PE/DVT) 0.25 MG/L FEU Blood Urea Nitrogen 5 MG/DL Creatinine 0.57 MG/DL Random Glucose 101 MG/DL Calcium Level 9.1 MG/DL Sodium Level 140 MEQ/L Potassium Level 3.9 MEQ/L Chloride Level 107 MEQ/L Carbon Dioxide Level 21.9 MEQ/L Anion Gap 11 MEQ/L Estimat Glomerular Filtration Rate 127 ML/MIN Troponin I LESS THAN 0.02 NG/ML MDM Medical Decision Making Medical Screen Exam Complete: Yes Emergency Medical Condition: Yes Medical Record Reviewed: Yes Interpretation(s) Twelve-lead EKG was reviewed by me. Normal sinus rhythm, normal axis, nonspecific ST-T wave changes. Heart rate of 77 bpm Differential Diagnosis Acute asthma exacerbation, bronchitis, PE Narrative Course 8:15 PM awaiting for blood test results include d-dimer. Patient was given 2 DuoNeb's. 8:40 PM all the blood test results are back and within acceptable limits essentially. 8:56 PM upon reassessment patient still has some wheeze but better air entry. I have ordered a third DuoNeb treatment and p.o. prednisone. Blood test results are back and within normal limit. I am comfortable discharging her home. Procedures EKG Prior to Arrival: No Diagnosis Primary Impression: Acute asthma exacerbation Qualified Codes: J45.41 - Moderate persistent asthma with (acute) exacerbation Additional Impressions: Bronchitis Needs smoking cessation education Referrals: Primary Care Physician Additional Instructions: Take medications as per the prescription direction. He should quit smoking in order to feel better respiratory chin. Take 2 puffs of your albuterol every 4- 6 hours to symptoms improve. Return to ER if condition worsens or any other new concerns. Med/Other Pt SpecificInfo: Prescription(s) given Scripts Amoxicillin (Amoxicillin) 500 Mg Cap 500 MG PO BID for Infection for 10 Days, #20 CAP 0 Refills Prov: Edison Noguera MD 09/17/17 Prednisone (Prednisone) 20 Mg Tab 20 MG PO BID for 5 Days, #10 TAB 0 Refills Prov: Ediosn Noguera MD 09/17/17 Disposition: 01 DISCHARGE HOME Condition: Stable Edison Noguera MD Sep 17, 2017 20:15
[2017-09-17 20:29] LABS: BICARBONATE 21.9 MEQ/L (21.0-32.0); BLOOD UREA NITROGEN 5 MG/DL (7-18); CALCIUM 9.1 MG/DL (8.5-10.1); CHLORIDE 107 MEQ/L (98-107); CREATININE 0.57 MG/DL (0.50-1.00); GLOMERULAR FILTRATION RATE 127 ML/MIN (>89); GLUCOSE,RANDOM 101 MG/DL (74-106); SODIUM (NA) 140 MEQ/L (136-145)
[2017-09-17 20:33] LABS: TROPONIN I LESS THAN 0.02 NG/ML (0.02-0.05)
[2017-09-17] MEDS ORDERED: AMOX500C PO (20:59)
[2017-09-17] MEDS ORDERED: PRED20 PO (20:59)
[2017-09-17] MEDS ORDERED: RESP: ALBUTEROL 2.5 MG/IPRATROPIUM 0.5 MG NEB (SCH) INH ONE (21:00)
[2017-09-17] MEDS ORDERED: predniSONE 20 MG TAB PO ONE (21:00)
--- NOTE | 2017-09-18 09:19 | EKG ---
Date Performed: 09/17/2017 Time Performed: 19:38:12 PTAGE: 27 years EKG: Sinus rhythm NORMAL ECG NO PREVIOUS TRACING DOCTOR: Rafiq Slater Interpretating Date/Time 09/18/2017 09:14:37
== END 2017-09-17 21:40 | disposition home or self-care (01) ==
LOC: NEPD 18:07
DX: J45.901 Unspecified asthma with (acute) exacerbation (principal)
CPT/HCPCS: 80048; 84484; 85025; 85379; 93005; 94640; 94664; 99284

== ENCOUNTER 2017-11-23 13:59 | Inpatient (IN) ==
[2017-11-23] MEDS ORDERED: fentaNYL Citrate Inj 100 MCG/2 ML Ampul IV.PUSH PRN ×2 (15:26)
[2017-11-23] MEDS ORDERED: Sod Chloride 0.9% Inj 1,000 ML IV.CONT PRN (15:26)
[2017-11-23] MEDS ORDERED: Oxytocin 30 Units/500ml Premix 30 UNITS/500 ML BAG IV.SIG ONE (15:26)
[2017-11-23] MEDS ORDERED: Sodium Chlor 0.9% Inj 500 ML IV.SIG PRN (15:26)
[2017-11-23] MEDS ORDERED: Naloxone Inj 0.4 MG/ML Vial IV.PUSH PRN (15:26)
[2017-11-23] MEDS ORDERED: Oxytocin 30 Units/500ml Premix 30 UNITS/500 ML BAG IV.SIG PRN ×2 (15:27→21:30)
[2017-11-23] MEDS ORDERED: Citric Acid/Sodium Citrate Liq 30 ML UDC PO SCH (15:30)
[2017-11-23 16:29] LABS: Baso % (Auto) 0.3 % (0.0-2.0); Eos # (Auto) 0.7 th/mm3 (0.0-0.4); Eos % (Auto) 6.2 % (0.0-4.0); Hematocrit 33.2 % (35.0-46.0); Lymph # (Auto) 2.6 th/mm3 (1.0-4.8); Lymph % (Auto) 22.9 % (9.0-44.0); Mean Corpuscular HGB Conc 33.1 % (32.0-36.0); Mean Corpuscular Hemoglobin 26.2 pg (27.0-34.0); Mean Corpuscular Volume 79.1 fL (80.0-100.0); Mean Platelet Volume 8.6 fL (7.0-11.0); Mono % (Auto) 8.6 % (0.0-8.0); Neut # (Auto) 7.1 th/mm3 (1.8-7.7); Platelet Count 343 th/mm3 (150-450); Red Cell Distribution Width 15.2 % (11.6-17.2); White Blood Count 11.4 th/mm3 (4.0-11.0)
[2017-11-23 17:41] LABS: Calcium Oxalate Crystals,Urine Occasional /hpf; Clarity,Urine Hazy (Clear); Color,Urine Yellow (Yellw/Straw); Glucose,Urine (UA) Negative (Negative); Leukocyte Esterase,Urine Negative (Negative); Mucus,Urine Moderate /lpf (Occasional); Nitrite,Urine Negative (Negative); Specific Gravity,Urine 1.031 (1.002-1.035); Squamous Epithelial Cell,Urine 2 /hpf (0-5)
--- NOTE | 2017-11-23 17:42 | P.HPOB ---
History of Present Illness Primary Care Physician: No Primary Care Physician Chief Complaint: elevated BPs on and off, proteinuria, oligohydramnios and prior section History of Present Illness: 27 yo mwf at 37 and 2/7 to L & D for induction TOLAC Had pre eclampsia with first and failed induction. Has had intermittently elevated BP, N, V, ESCALANTE, blurred vision on and off through last month. Highest BP 168/98. 130/80 today in office and even lower here. Starting low dose pitocin. Had elevated glucola and was on 10 U NPH nightly works nights GBS- developed a cold last week and has had increasing exacerbation of asthma very SOB not a candidate for cervical ripening due to asthma and prior section Para: 1 : 2 - Inpatient Certification I certify that the inpatient services were ordered in accordance with Medicare regulations governing the order. This includes certification that hospital inpatient services are reasonable and necessary and in the case of services not specified as inpatient-only under 42 CFR 419.22(n), that they are appropriately provided as inpatient services in accordance to with the 2-midnight benchmark under 43 CFR 412.3(e) Estimated Total Length of Stay (Days): 4 Plans for Post Hospital Care: Home Review of Systems Respiratory: Reports shortness of breath, Reports shortness of breath with activity, Reports wheezing PMFSH - Medical History Medical History: Medical History (Last Updated 11/22/17 @ 16:42 by Sonu Avila MD) Depression affecting Gestational diabetes - Surgical History Surgical History: Surgical History (Last Updated 10/04/17 @ 20:37 by Sonu Avila MD) History of delivery History of cholecystectomy - Tobacco History Second Hand Smoke Exposure: No Tobacco Use In Past 30 Days: No - Alcohol History How Often Do You Have a Drink Containing Alcohol: Never - Travel History History of Recent Travel: No Recent Travel in the [place] Within the Last 8 Weeks: No Recent Travel Out of the Country Within the Last 8 Weeks: No Medications and Allergies Active Medications: Active Medications Albuterol (Albuterol Neb (Prn)) 2.5 mg NEB Q4HR NEB PRN PRN Reason: SHORTNESS OF BREATH/WHEEZING Last Admin: 11/23/17 17:09 Dose: 2.5 mg Citric Acid/Sodium Citrate (Sodium Citrate/Citric Acid Liq) 30 ml PO TRANSFER DRIVER MICHAEL Stop: 11/27/17 15:29 Fentanyl Citrate (Fentanyl Inj) 50 mcg IV.PUSH Q1H PRN PRN Reason: Pain Scale 3 - 5 Fentanyl Citrate (Fentanyl Inj) 100 mcg IV.PUSH Q1H PRN PRN Reason: PAIN SCALE 6 TO 10 Lactated Ringer's (Lr 1000 Ml Inj) 1,000 mls @ 125 mls/hr IV.CONT .Q8H MICHAEL Last Admin: 11/23/17 16:56 Dose: 125 mls/hr Lactated Ringer's (Lr 1000 Ml Inj) 1,000 mls @ 3,000 mls/hr IV.SIG UNSCH PRN PRN Reason: compromise or epidural Sodium Chloride (Ns Inj) 1,000 mls @ 100 mls/hr IV.CONT .Q10H PRN PRN Reason: SEE LABEL COMMENTS Sodium Chloride (Ns Inj) 500 mls @ 1,000 mls/hr IV.SIG UNSCH PRN PRN Reason: SEE LABEL COMMENTS Oxytocin (Pitocin 30 Units/Ns 500 Ml Premix) 30 units in 500 mls @ 1 mls/hr IV.SIG TITRATE PRN; Protocol PRN Reason: For induction of labor Last Admin: 11/23/17 16:57 Dose: 1 milliunit/min, 1 mls/hr Insulin Human Regular (Novolin R Inj) 5 units SQ ONCE ONE Stop: 11/23/17 17:39 Lidocaine HCl (Xylocaine 1% Inj) 0.1 ml I-DERMAL PRN PRN PRN Reason: For IV start Stop: 11/26/17 15:25 Lidocaine HCl (Xylocaine 1% Inj) 10 ml INFILTRATN PRN PRN PRN Reason: For episiotomy repair Stop: 11/25/17 15:25 Mineral Oil (Muri-Lube Oil) 10 ml TOPICAL PRN PRN PRN Reason: PRN perineal massage Naloxone HCl (Narcan Inj) 0.1 mg IV.PUSH Q2M PRN PRN Reason: for opiate reversal Allergies Allergy/AdvReac Type Severity Reaction Status Date / Time No Known Allergies Allergy Verified 11/02/17 15:12 Home Medications Medication Instructions Recorded Confirmed Type PNV cmb#95-ferrous fumarate-FA 1 tab PO DAILY 10/04/17 11/23/17 History [] aspirin [Aspirin Childrens] 1 tab PO DAILY 10/04/17 11/23/17 History insulin NPH isoph U-100 human 10 unit SUB-Q QPM 10/04/17 11/23/17 History sertraline [Zoloft] 25 mg PO DAILY 10/04/17 11/23/17 History albuterol sulfate 2 puff INHALATION Q4H PRN 11/22/17 11/23/17 History guaifenesin [Mucinex] 600 mg PO Q12H 11/22/17 11/23/17 History Exam Vital signs: Vital Signs 11/23/17 14:45 11/23/17 16:12 11/23/17 17:00 Temperature 98.1 F Pulse Rate 101 H 89 102 H Respiratory Rate 18 Blood Pressure 124/63 118/60 137/57 L 11/23/17 17:10 Temperature Pulse Rate 79 Respiratory Rate 20 Blood Pressure Intake & Output 11/22/17 11/23/17 11/23/17 18:59 06:59 18:59 Weight 111 kg Other: Weight On Admission 111 kg - Constitutional mild distress, obese - Routine HEENT Exam Head: Present: normocephalic Eye: Present: PERRL ENT: Present: mucous membranes moist - Routine Chest/Breast/Axilla Exam Chest wall: Present: tenderness Breast: Present: tenderness - Routine Respiratory Exam Present: wheezes - Routine Cardiovascular Exam Present: RRR - Routine Abdominal Exam Present: soft (cervix ft soft and anterior), normoactive bowel sounds (38), distended (edema normal reflexes) Results - Labs CBC & Chem 7: 11/23/17 14:45 11/23/17 14:45 Labs: Laboratory Results - last 24 hr 11/23/17 11/23/17 14:45 14:45 WBC 11.4 H RBC 4.20 Hgb 11.0 L Hct 33.2 L MCV 79.1 L MCH 26.2 L MCHC 33.1 RDW 15.2 Plt Count 343 MPV 8.6 Neut % (Auto) 62.0 Lymph % (Auto) 22.9 [place] % (Auto) 8.6 H Eos % (Auto) 6.2 H Baso % (Auto) 0.3 Neut # (Auto) 7.1 Lymph # (Auto) 2.6 [place] # (Auto) 1.0 H Eos # (Auto) 0.7 H Baso # (Auto) 0.0 WBC Differential . Differential Comment Auto diff final Blood Type A Positive Caprini VTE Risk Assessment Caprini VTE Risk Assessment: No/Low Risk (score <= 1) Caprini Risk Assessment Model: Point Value = 1 Point Value = 2 Point Value = 3 Point Value = 5 Age 41-60 Minor surgery BMI > 25 kg/m2 Swollen legs Varicose veins or History of unexplained or recurrent spontaneous Oral contraceptives or hormone replacement Sepsis (< 1 month) Serious lung disease, including pneumonia (< 1 month) Abnormal pulmonary function Acute myocardial infarction Congestive heart failure (< 1 month) History of inflammatory bowel disease Medical patient at bed rest Age 61-74 Arthroscopic surgery Major open surgery (> 45 min) Laparoscopic surgery (> 45 min) Malignancy Confined to bed (> 72 hours) Immobilizing plaster cast Central venous access Age >= 75 History of VTE Family history of VTE Factor V Leiden Prothrombin [id number] Lupus anticoagulant Anticardiolipin antibodies Elevated serum homocysteine Heparin-induced thrombocytopenia Other congenital or acquired thrombophilia Stroke (< 1 month) Elective arthroplasty Hip, pelvis, or leg fracture Acute spinal cord injury (< 1 month) Prophylaxis Regimen: Total Risk Factor Score Risk Level Prophylaxis Regimen 0-1 Low Early ambulation 2 Moderate Order ONE of the following: *Sequential Compression Device (SCD) *Heparin 5000 units SQ BID 3-4 Higher Order ONE of the following medications: *Heparin 5000 units SQ TID *Enoxaparin/Lovenox 40 mg SQ daily (WT < 150 kg, CrCl > 30 mL/min) *Enoxaparin/Lovenox 30 mg SQ daily (WT < 150 kg, CrCl > 10-29 mL/min) *Enoxaparin/Lovenox 30 mg SQ BID (WT < 150 kg, CrCl > 30 mL/min) AND/OR *Sequential Compression Device (SCD) 5 or more Highest Order ONE of the following medications: *Heparin 5000 units SQ TID (Preferred with Epidurals) *Enoxaparin/Lovenox 40 mg SQ daily (WT < 150 kg, CrCl > 30 mL/min) *Enoxaparin/Lovenox 30 mg SQ daily (WT < 150 kg, CrCl > 10-29 mL/min) *Enoxaparin/Lovenox 30 mg SQ BID (WT < 150 kg, CrCl > 30 mL/min) AND *Sequential Compression Device (SCD) Assessment and Plan - Diagnosis (1) Oligohydramnios Code(s): O41.00X0 - Oligohydramnios, unspecified trimester, not applicable or unspecified Status: Acute (2) History of pre-eclampsia in prior , currently in third trimester Code(s): O09.293 - Supervision of with other poor reproductive or obstetric history, third trimester Status: Acute (3) Previous section Code(s): Z98.891 - History of uterine scar from previous surgery Status: Acute (4) Gestational diabetes requiring insulin Code(s): O24.414 - Gestational diabetes mellitus in , insulin controlled Status: Acute (5) Asthma affecting in third trimester Code(s): O99.513 - Diseases of the respiratory system complicating , third trimester; J45.909 - Unspecified asthma, uncomplicated Status: Acute - Plan low dose pit for TOLAC treat SOB symptomatically hope for
[2017-11-23 17:45] LABS: Amphetamine Urine With Conf Neg (Neg); Benzodiazepine Urine With Conf Neg (Neg)
[2017-11-23 17:47] LABS: Bilirubin,Urine Negative (Negative)
[2017-11-23 18:10] LABS: Alanine Aminotransferase 23 U/L (10-53); Albumin 2.6 g/dL (3.4-5.0); Anion Gap 13 meq/L (5-15); Aspartate Aminotransferase 21 U/L (15-37); Blood Urea Nitrogen 7 mg/dL (7-18); Calcium 8.6 mg/dL (8.5-10.1); Carbon Dioxide 18.9 meq/L (21.0-32.0); Chloride 110 meq/L (98-107); Glomerular Filtration Rate Greater Than 89 mL/min (>89); Glucose,Random 68 mg/dL (74-106); Potassium 3.9 meq/L (3.5-5.1); Sodium 142 meq/L (136-145); Uric Acid 5.2 mg/dl (2.6-6.0)
[2017-11-23 18:13] LABS: Alkaline Phosphatase 167 U/L (45-117)
[2017-11-23] MEDS ORDERED: Hydrocortisone Sod Succinate 250 MG Vial IV.PUSH ONE (21:15)
--- NOTE | 2017-11-24 08:27 | P.OBLABOR ---
Subjective Interval history: quiet night did contract mildly every 3-4 minutes had solucortef for wheezing and SOB q 2 hour pulmonary treatments breathing well this am FBS only 120 Objective Vital Signs: Vital Signs - 8 hr 11/24/17 00:52 11/24/17 03:52 11/24/17 04:30 Temperature 98.6 F Pulse Rate 102 H 108 H 110 H Respiratory Rate 20 20 20 Blood Pressure 141/70 H 11/24/17 06:00 11/24/17 06:25 11/24/17 07:16 Temperature 97.8 F Pulse Rate 107 H 107 H Respiratory Rate 20 20 20 Blood Pressure 149/81 H 11/24/17 07:23 11/24/17 07:25 Temperature 97.8 F Pulse Rate 113 H Respiratory Rate Blood Pressure 136/71 Objective: cervi 1+/80/0 anterior and soft arom clear strip category 1 mild UCs Weeks Gestation: 37 Patient Started Active Labor: No Medical Induction of Labor: Yes Artificial Rupture of Membrane: Yes Artificial ROM Date: 11/24/17 Artificial ROM Time: 08:26 Assessment and Plan - Diagnosis (1) Oligohydramnios Code(s): O41.00X0 - Oligohydramnios, unspecified trimester, not applicable or unspecified Status: Acute (2) History of pre-eclampsia in prior , currently in third trimester Code(s): O09.293 - Supervision of with other poor reproductive or obstetric history, third trimester Status: Acute (3) Previous section Code(s): Z98.891 - History of uterine scar from previous surgery Status: Acute (4) Gestational diabetes requiring insulin Code(s): O24.414 - Gestational diabetes mellitus in , insulin controlled Status: Acute (5) Asthma affecting in third trimester Code(s): O99.513 - Diseases of the respiratory system complicating , third trimester; J45.909 - Unspecified asthma, uncomplicated Status: Acute - Plan low dose pit for TOLAC treat SOB symptomatically hope for 11/24/17 continue low dose pit no insulin or accuchecks anticipate
[2017-11-24] MEDS ORDERED: fentaNYL 2MCG-Bupiv 0.125% Epi 150 ML EPIDURAL ONE (15:41)
[2017-11-24] MEDS ORDERED: Lidocaine PF 1% Inj 5 ML Vial ONE (15:45)
[2017-11-24] MEDS ORDERED: Lidocaine 2%/Epinephrine 1:200,000 PF 10 ML SDV ONE (15:45)
[2017-11-24] MEDS ORDERED: fentaNYL Citrate Inj 100 MCG/2 ML Ampul EPIDURAL ONE ×2 (16:32→17:12)
--- NOTE | 2017-11-24 17:48 | P.OBLABOR ---
Subjective Interval history: contractions became painful and now has epidural and is happier Objective Vital Signs: Vital Signs - 8 hr 11/24/17 10:00 11/24/17 10:43 11/24/17 12:00 Temperature 98.0 F Pulse Rate 78 105 H Respiratory Rate 20 22 18 Blood Pressure 110/61 11/24/17 12:06 11/24/17 12:20 11/24/17 12:30 Temperature Pulse Rate 101 H 113 H Respiratory Rate 20 Blood Pressure 131/57 L 11/24/17 12:55 11/24/17 14:20 11/24/17 14:25 Temperature 98.2 F Pulse Rate 97 H 108 H 99 H Respiratory Rate 20 Blood Pressure 123/69 11/24/17 14:32 11/24/17 14:51 11/24/17 15:55 Temperature Pulse Rate 100 H 103 H Respiratory Rate 20 18 20 Blood Pressure 123/71 11/24/17 16:00 11/24/17 16:02 11/24/17 16:16 Temperature 97.8 F Pulse Rate 86 97 H Respiratory Rate 20 Blood Pressure 111/51 L 107/52 L 11/24/17 16:50 11/24/17 16:57 11/24/17 17:05 Temperature Pulse Rate 101 H 126 H 106 H Respiratory Rate 20 20 Blood Pressure 114/63 11/24/17 17:15 11/24/17 17:30 11/24/17 17:32 Temperature Pulse Rate 106 H 105 H Respiratory Rate 20 20 Blood Pressure 115/63 11/24/17 17:38 Temperature 98.3 F Pulse Rate Respiratory Rate Blood Pressure Objective: cervix 3/90/0 strip category 1 UCs adequate but need to be closer than every 4-5 minutes on 11 mu/min pitocin has epidural has IUPC Patient Started Active Labor: No Medical Induction of Labor: Yes Artificial Rupture of Membrane: Yes Assessment and Plan - Diagnosis (1) Oligohydramnios Code(s): O41.00X0 - Oligohydramnios, unspecified trimester, not applicable or unspecified Status: Acute (2) History of pre-eclampsia in prior , currently in third trimester Code(s): O09.293 - Supervision of with other poor reproductive or obstetric history, third trimester Status: Acute (3) Previous section Code(s): Z98.891 - History of uterine scar from previous surgery Status: Acute (4) Gestational diabetes requiring insulin Code(s): O24.414 - Gestational diabetes mellitus in , insulin controlled Status: Acute (5) Asthma affecting in third trimester Code(s): O99.513 - Diseases of the respiratory system complicating , third trimester; J45.909 - Unspecified asthma, uncomplicated Status: Acute - Plan low dose pit for TOLAC treat SOB symptomatically hope for 11/24/17 continue low dose pit no insulin or accuchecks anticipate 11/24/17 6pm now entering active labor hoping for
[2017-11-24] MEDS: fentaNYL 2MCG-Bupiv 0.125% Epi 150 ML EPIDURAL PRN (19:09)
[2017-11-24] MEDS ORDERED: Acetaminophen 325 MG Tablet PO PRN (22:01)
[2017-11-24] MEDS ORDERED: Hydrocortisone Sod Succinate 100 MG Vial IV.PUSH ONE (23:15)
--- NOTE | 2017-11-25 00:05 | XR ---
EXAM DATE: 11/24/2017 11:58 PM EDT AGE/SEX: 27 years / Female INDICATIONS: Shortness of breath and cough. CLINICAL DATA: This is the patient's initial encounter. Patient reports that signs and symptoms have been present for 2 days and indicates a pain score of 0/10. MEDICAL/SURGICAL HISTORY: None. Non-responsive. COMPARISON: No prior exams available for comparison. FINDINGS: A single AP view of the chest demonstrates the lungs to be symmetrically aerated without evidence of mass, infiltrate or effusion. The cardiomediastinal contours are unremarkable. Osseous structures a re intact. CONCLUSION: No evidence of acute cardiopulmonary disease. Electronically signed by: Ulises Cope MD 11/25/2017 12:04 AM EDT
[2017-11-25] MEDS: guaiFENesin/Codeine Syrup 200 MG/20 MG 10 ML UDC PO PRN (01:55)
[2017-11-25] MEDS: fentaNYL 2MCG-Bupiv 0.125% Epi 150 ML EPIDURAL PRN ×2 (05:01→16:07)
--- NOTE | 2017-11-25 08:13 | P.OBLABOR ---
Subjective Interval history: Had significant respiratory issues with SOB last night, despite q 2 hour respiratory treatments. Given second dose of IV solucortef during the night with great improvement. CXR shows no fluid or consolidation. GFM no pain post epidural. in good spirits and wants to continue if appropriate Objective Vital Signs: Vital Signs - 8 hr 11/25/17 00:05 11/25/17 00:10 11/25/17 00:20 Temperature Pulse Rate 104 H 138 H 127 H Respiratory Rate Blood Pressure Pulse Oximetry 11/25/17 00:25 11/25/17 00:30 11/25/17 00:31 Temperature Pulse Rate 104 H 107 H 102 H Respiratory Rate Blood Pressure 128/62 Pulse Oximetry 11/25/17 00:35 11/25/17 00:40 11/25/17 00:55 Temperature Pulse Rate 103 H 101 H 105 H Respiratory Rate Blood Pressure Pulse Oximetry 11/25/17 01:10 11/25/17 01:40 11/25/17 01:45 Temperature Pulse Rate 102 H 104 H 102 H Respiratory Rate Blood Pressure 117/55 L 126/67 Pulse Oximetry 11/25/17 01:50 11/25/17 01:55 11/25/17 02:00 Temperature 98.2 F Pulse Rate 109 H 123 H 115 H Respiratory Rate 20 Blood Pressure 124/65 Pulse Oximetry 11/25/17 02:05 11/25/17 02:15 11/25/17 02:20 Temperature Pulse Rate 112 H 109 H 109 H Respiratory Rate Blood Pressure Pulse Oximetry 11/25/17 02:25 11/25/17 02:30 11/25/17 02:31 Temperature Pulse Rate 92 H 103 H 101 H Respiratory Rate Blood Pressure 135/76 Pulse Oximetry 11/25/17 02:40 11/25/17 02:50 11/25/17 02:55 Temperature Pulse Rate 107 H 93 H 97 H Respiratory Rate Blood Pressure Pulse Oximetry 11/25/17 03:00 11/25/17 03:05 11/25/17 03:20 Temperature Pulse Rate 96 H 91 H 91 H Respiratory Rate Blood Pressure 124/51 L Pulse Oximetry 11/25/17 03:30 11/25/17 03:31 11/25/17 03:35 Temperature Pulse Rate 95 H 85 83 Respiratory Rate Blood Pressure 130/38 L Pulse Oximetry 11/25/17 03:45 11/25/17 03:50 11/25/17 03:57 Temperature 98.4 F Pulse Rate 92 H 86 Respiratory Rate 20 Blood Pressure Pulse Oximetry 11/25/17 03:58 11/25/17 04:00 11/25/17 04:01 Temperature Pulse Rate 102 H 107 H 107 H Respiratory Rate 20 Blood Pressure 132/76 Pulse Oximetry 97 11/25/17 04:05 11/25/17 04:10 11/25/17 04:22 Temperature Pulse Rate 102 H 108 H Respiratory Rate 19 Blood Pressure Pulse Oximetry 11/25/17 04:25 11/25/17 04:30 11/25/17 04:31 Temperature Pulse Rate 94 H 105 H 101 H Respiratory Rate Blood Pressure 120/76 Pulse Oximetry 11/25/17 04:35 11/25/17 04:45 11/25/17 04:55 Temperature Pulse Rate 105 H 93 H 102 H Respiratory Rate Blood Pressure 124/68 Pulse Oximetry 11/25/17 05:00 11/25/17 05:10 11/25/17 05:15 Temperature Pulse Rate 99 H 102 H 86 Respiratory Rate Blood Pressure Pulse Oximetry 11/25/17 05:31 11/25/17 05:35 11/25/17 05:55 Temperature Pulse Rate 96 H 107 H 89 Respiratory Rate Blood Pressure 122/62 Pulse Oximetry 11/25/17 06:00 11/25/17 06:01 11/25/17 06:05 Temperature Pulse Rate 98 H 91 H 92 H Respiratory Rate Blood Pressure 118/56 L Pulse Oximetry 11/25/17 06:10 11/25/17 06:15 11/25/17 06:20 Temperature 98.3 F Pulse Rate 107 H 108 H 110 H Respiratory Rate 18 Blood Pressure Pulse Oximetry 11/25/17 06:25 11/25/17 06:30 11/25/17 06:31 Temperature Pulse Rate 107 H 105 H 89 Respiratory Rate Blood Pressure 116/53 L Pulse Oximetry 11/25/17 06:35 11/25/17 06:40 11/25/17 06:45 Temperature Pulse Rate 97 H 96 H 95 H Respiratory Rate Blood Pressure Pulse Oximetry 11/25/17 06:50 11/25/17 06:55 11/25/17 07:00 Temperature Pulse Rate 95 H 107 H 107 H Respiratory Rate 18 Blood Pressure 113/53 L Pulse Oximetry 11/25/17 07:05 11/25/17 07:26 11/25/17 07:30 Temperature Pulse Rate 105 H 110 H 106 H Respiratory Rate 20 Blood Pressure 123/61 Pulse Oximetry Objective: lungs clear at this time strip category one contractions approaching adequate in strength, timing and duration IUPC and FSE in place receiving IV ancef q 6 hours since ruptured > 18 hours. not getting insulin pitocin at 20 mu/min 6cm/90%/-1 and head appears to have rotated to a favorable position with a knot that indicates it was previously asynclitic fluid is clear FSE came off during exam Patient Started Active Labor: Yes Medical Induction of Labor: Yes Artificial Rupture of Membrane: Yes Assessment and Plan - Diagnosis (1) Oligohydramnios Code(s): O41.00X0 - Oligohydramnios, unspecified trimester, not applicable or unspecified Status: Acute (2) History of pre-eclampsia in prior , currently in third trimester Code(s): O09.293 - Supervision of with other poor reproductive or obstetric history, third trimester Status: Acute (3) Previous section Code(s): Z98.891 - History of uterine scar from previous surgery Status: Acute (4) Gestational diabetes requiring insulin Code(s): O24.414 - Gestational diabetes mellitus in , insulin controlled Status: Acute (5) Asthma affecting in third trimester Code(s): O99.513 - Diseases of the respiratory system complicating , third trimester; J45.909 - Unspecified asthma, uncomplicated Status: Acute - Plan low dose pit for TOLAC treat SOB symptomatically hope for 11/24/17 continue low dose pit no insulin or accuchecks anticipate 11/24/17 6pm now entering active labor hoping for 11/25/17 8am Finally in active labor. No evidence of infection or /maternal distress. Blood pressures remain normal. Mom is afebrile on Ancef prophylaxis. Contractions are every 3 -4 minutes and strip category one. Discussed in detail with patient and family and nurses: Reviewed that the risk of uterine rupture remains small but increases with time. Reviewed that continuous monitoring with IUPC and FHR monitoring should alert us to any sign of uterine compromise with the opportunity to act immediately. Reviewed that if a rupture were to occur, transfusion, hysterectomy and operative complications were a risk. Reviewed that in the absence of fever, nonreassuring strip, elevated BP or maternal desire to proceed with section, it is OK to continue with induction. Will stop pitocin and begin again at 1 mu/min presuming this will positively impact receptors. Will continue ancef. Will not give insulin and will encourage non sugar free popcicles for some calories. Will continue respiratory treatments. Do want to see her follow a normal curve for active labor at this point. Reviewed the baby will be delivered today--one way or another.
[2017-11-25] MEDS ORDERED: Lidocaine PF 1% Inj 5 ML Syringe INFILTRATN ONE (12:24)
--- NOTE | 2017-11-25 17:26 | P.OBLABOR ---
Subjective Interval history: Tolerating contractions. When pitocin was turned off she stopped natalia and when restarted she did not develop close to adequate UCs until after 3pm. Had some variables earlier that resolved with an amnioinfusion. No symptoms of chorioamniites. Baby moving well. No meconium. Objective Vital Signs: Vital Signs - 8 hr 11/25/17 09:20 11/25/17 09:30 11/25/17 10:00 Temperature Pulse Rate 100 H 104 H 97 H Respiratory Rate 20 20 20 Blood Pressure 120/57 L 101/44 L 11/25/17 10:25 11/25/17 10:27 11/25/17 10:51 Temperature 98.0 F Pulse Rate 92 H 84 Respiratory Rate 20 20 Blood Pressure 146/59 H 136/62 11/25/17 10:55 11/25/17 11:26 11/25/17 12:00 Temperature Pulse Rate 98 H 94 H 91 H Respiratory Rate 20 20 Blood Pressure 115/56 L 124/58 L 11/25/17 12:20 11/25/17 12:30 11/25/17 12:55 Temperature Pulse Rate 94 H 111 H 103 H Respiratory Rate 20 Blood Pressure 120/60 126/75 11/25/17 13:00 11/25/17 13:10 11/25/17 13:29 Temperature Pulse Rate 108 H 107 H Respiratory Rate 20 20 Blood Pressure 144/71 H 11/25/17 13:30 11/25/17 13:54 11/25/17 14:30 Temperature 98.3 F Pulse Rate 108 H 94 H Respiratory Rate 20 20 Blood Pressure 124/68 138/64 11/25/17 15:00 11/25/17 15:26 11/25/17 15:30 Temperature 98.2 F Pulse Rate 103 H 101 H Respiratory Rate 20 20 Blood Pressure 138/68 129/72 11/25/17 15:49 11/25/17 15:55 11/25/17 16:25 Temperature Pulse Rate 78 100 H 99 H Respiratory Rate 20 Blood Pressure 133/60 86/67 L 11/25/17 16:26 11/25/17 16:33 11/25/17 16:55 Temperature Pulse Rate 106 H 103 H Respiratory Rate 20 20 Blood Pressure 133/79 11/25/17 17:03 Temperature Pulse Rate Respiratory Rate 20 Blood Pressure Objective: Remains normotensive and afebrile. Strip category one. cervix /- EFW 7 and 1/2 pounds pelvis clinically adequate. baby has rotated further and fully applied to cervix which her RN for the day considers a change. Weeks Gestation: 37 Patient Started Active Labor: Yes Assessment and Plan - Diagnosis (1) Oligohydramnios Code(s): O41.00X0 - Oligohydramnios, unspecified trimester, not applicable or unspecified Status: Acute (2) History of pre-eclampsia in prior , currently in third trimester Code(s): O09.293 - Supervision of with other poor reproductive or obstetric history, third trimester Status: Acute (3) Previous section Code(s): Z98.891 - History of uterine scar from previous surgery Status: Acute (4) Gestational diabetes requiring insulin Code(s): O24.414 - Gestational diabetes mellitus in , insulin controlled Status: Acute (5) Asthma affecting in third trimester Code(s): O99.513 - Diseases of the respiratory system complicating , third trimester; J45.909 - Unspecified asthma, uncomplicated Status: Acute (6) Slow slope active phase of labor Code(s): O62.2 - Other uterine inertia Status: Acute - Plan low dose pit for TOLAC treat SOB symptomatically hope for 11/24/17 continue low dose pit no insulin or accuchecks anticipate 11/24/17 6pm now entering active labor hoping for 11/25/17 8am Finally in active labor. No evidence of infection or /maternal distress. Blood pressures remain normal. Mom is afebrile on Ancef prophylaxis. Contractions are every 3 -4 minutes and strip category one. Discussed in detail with patient and family and nurses: Reviewed that the risk of uterine rupture remains small but increases with time. Reviewed that continuous monitoring with IUPC and FHR monitoring should alert us to any sign of uterine compromise with the opportunity to act immediately. Reviewed that if a rupture were to occur, transfusion, hysterectomy and operative complications were a risk. Reviewed that in the absence of fever, nonreassuring strip, elevated BP or maternal desire to proceed with section, it is OK to continue with induction. Will stop pitocin and begin again at 1 mu/min presuming this will positively impact receptors. Will continue ancef. Will not give insulin and will encourage non sugar free popcicles for some calories. Will continue respiratory treatments. Do want to see her follow a normal curve for active labor at this point. Reviewed the baby will be delivered today--one way or another. 11/25/17 17:30 mom and baby remain stable with no signs of deterioration. We have not been able to achieve adequate labor and document an arrest of dilation or descent over two hours. We have discussed risks of continued labor and the currently existing increase risk of post delivery hemorrhage (with or C/S) She would like to try one hour more. If she reaches 8-9 we will continue. It does appear that the manipulations of the last exam did increase the frequency and intensity and she is having adequate labor with IUPC on the monitor.
[2017-11-25] MEDS ORDERED: Methylergonovine Inj 0.2 MG/ML Ampul ONE (18:13)
--- NOTE | 2017-11-25 18:16 | P.OBLABOR ---
Subjective Interval history: Feeling UCs would like to continue GFM Objective Vital Signs: Vital Signs - 8 hr 11/25/17 10:25 11/25/17 10:27 11/25/17 10:51 Temperature 98.0 F Pulse Rate 92 H 84 Respiratory Rate 20 20 Blood Pressure 146/59 H 136/62 11/25/17 10:55 11/25/17 11:26 11/25/17 12:00 Temperature Pulse Rate 98 H 94 H 91 H Respiratory Rate 20 20 Blood Pressure 115/56 L 124/58 L 11/25/17 12:20 11/25/17 12:30 11/25/17 12:55 Temperature Pulse Rate 94 H 111 H 103 H Respiratory Rate 20 Blood Pressure 120/60 126/75 11/25/17 13:00 11/25/17 13:10 11/25/17 13:29 Temperature Pulse Rate 108 H 107 H Respiratory Rate 20 20 Blood Pressure 144/71 H 11/25/17 13:30 11/25/17 13:54 11/25/17 14:30 Temperature 98.3 F Pulse Rate 108 H 94 H Respiratory Rate 20 20 Blood Pressure 124/68 138/64 11/25/17 15:00 11/25/17 15:26 11/25/17 15:30 Temperature 98.2 F Pulse Rate 103 H 101 H Respiratory Rate 20 20 Blood Pressure 138/68 129/72 11/25/17 15:49 11/25/17 15:55 11/25/17 16:25 Temperature Pulse Rate 78 100 H 99 H Respiratory Rate 20 Blood Pressure 133/60 86/67 L 11/25/17 16:26 11/25/17 16:33 11/25/17 16:55 Temperature Pulse Rate 106 H 103 H Respiratory Rate 20 20 Blood Pressure 133/79 11/25/17 17:03 11/25/17 17:27 11/25/17 17:32 Temperature Pulse Rate 127 H 105 H Respiratory Rate 20 20 20 Blood Pressure 142/64 H 151/73 H 11/25/17 17:55 Temperature Pulse Rate 101 H Respiratory Rate Blood Pressure Objective: UCs are adequate with IUPC cervix a good 7 and thinner but baby seems to be hanging on symphysis. FHT is climbing slightly 160's and BTBV is diminishing but still present. no decels remains afebrile Assessment and Plan - Diagnosis (1) Oligohydramnios Code(s): O41.00X0 - Oligohydramnios, unspecified trimester, not applicable or unspecified Status: Acute (2) History of pre-eclampsia in prior , currently in third trimester Code(s): O09.293 - Supervision of with other poor reproductive or obstetric history, third trimester Status: Acute (3) Previous section Code(s): Z98.891 - History of uterine scar from previous surgery Status: Acute (4) Gestational diabetes requiring insulin Code(s): O24.414 - Gestational diabetes mellitus in , insulin controlled Status: Acute (5) Asthma affecting in third trimester Code(s): O99.513 - Diseases of the respiratory system complicating , third trimester; J45.909 - Unspecified asthma, uncomplicated Status: Acute (6) Slow slope active phase of labor Code(s): O62.2 - Other uterine inertia Status: Acute - Plan low dose pit for TOLAC treat SOB symptomatically hope for 11/24/17 continue low dose pit no insulin or accuchecks anticipate 11/24/17 6pm now entering active labor hoping for 11/25/17 8am Finally in active labor. No evidence of infection or /maternal distress. Blood pressures remain normal. Mom is afebrile on Ancef prophylaxis. Contractions are every 3 -4 minutes and strip category one. Discussed in detail with patient and family and nurses: Reviewed that the risk of uterine rupture remains small but increases with time. Reviewed that continuous monitoring with IUPC and FHR monitoring should alert us to any sign of uterine compromise with the opportunity to act immediately. Reviewed that if a rupture were to occur, transfusion, hysterectomy and operative complications were a risk. Reviewed that in the absence of fever, nonreassuring strip, elevated BP or maternal desire to proceed with section, it is OK to continue with induction. Will stop pitocin and begin again at 1 mu/min presuming this will positively impact receptors. Will continue ancef. Will not give insulin and will encourage non sugar free popcicles for some calories. Will continue respiratory treatments. Do want to see her follow a normal curve for active labor at this point. Reviewed the baby will be delivered today--one way or another. 11/25/17 17:30 mom and baby remain stable with no signs of deterioration. We have not been able to achieve adequate labor and document an arrest of dilation or descent over two hours. We have discussed risks of continued labor and the currently existing increase risk of post delivery hemorrhage (with or C/S) She would like to try one hour more. If she reaches 8-9 we will continue. It does appear that the manipulations of the last exam did increase the frequency and intensity and she is having adequate labor with IUPC on the monitor. 11/25/17 18:15 Concern regarding potential uterine atony and risk of PPH is now outweighing the consideration to try longer. At this time we need to have hemobate and methergine in the room and the risk will only increase. Uterus has not responded as would have been expected over the course of this TOLAC. She understands but is very tearful and upset. Will prepare for section.
--- NOTE | 2017-11-25 18:22 | P.OBDELI ---
Procedure Note - Pre Op Diagnosis (1) Arrested active phase of labor (2) History of pre-eclampsia in prior , currently in third trimester (3) Previous section (4) Gestational diabetes requiring insulin (5) Oligohydramnios (6) Asthma affecting in third trimester (7) Slow slope active phase of labor - Post Op Diagnosis (1) Delivered by delivery following previous delivery Performed by: Afsaneh Ibarra MD Procedure: Repeat Low Transverse Section Indication for Delivery: malposition Informed Consent Obtained: For anesthesia, For procedure Confirmed Correct: Patient, Procedure, Site, Time-out taken Anesthesia: Epidural Medication Prior to Procedure: As documented in eMAR Monitoring During Procedure: Blood pressure monitoring, lunchroom monitor, doppler, Pulse oximetry Urinary Catheter: Inserted using sterile technique, To dependent drainage Sterile Preparation: Duraprep, In usual fashion, With drapes to expose affected area Position: Supine with wedge to right side - Operative Features Skin Incision: Pfannenstiel Uterine Incision: Low transverse w/knife / scissors Membranes Ruptured: Previously Presentation: Occiput posterior Status of : Viable, Cord blood, Umbilical cord, Nursery present Placenta Del[facility]: Intact, [facility] Medications: Antibiotics, Oxytocin Procedure Tolerated: Well Maternal Condition: Stable Baby Condition: Stable - Infant : Female
[2017-11-25] MEDS ORDERED: Tranexamic Acid Inj 1,000 MG in Sodium Chlor 0.9% Inj 100 ML IV.SIG SCH (18:37)
[2017-11-25] MEDS ORDERED: ceFAZolin Inj 2,000 MG in Sodium Chlor 0.9% Inj 80 ML IV.SIG SCH (19:00)
[2017-11-25] MEDS ORDERED: Hydrocortisone Sod Succinate 100 MG Vial IV.PUSH PRN (19:31)
[2017-11-25] MEDS: Oxytocin 30 Units/500ml Premix 30 UNITS/500 ML BAG IV.SIG ONE ×2 (20:36→23:01)
[2017-11-25] MEDS ORDERED: Naloxone Inj 0.4 MG/ML Vial IV.PUSH PRN (21:13)
[2017-11-25] MEDS ORDERED: Oxytocin 30 Units/500ml Premix 30 UNITS/500 ML BAG IV.SIG PRN (23:16)
--- NOTE | 2017-11-26 06:44 | MP ---
cc: Afsaneh Ibarra MD DATE OF OPERATION: 11/25/2017 PREOPERATIVE DIAGNOSES: Trial of labor after section at 37-1/2 weeks. Indication for delivery under 39 weeks with oligohydramnios and elevated blood pressures. SECONDARY DIAGNOSES: Gestational diabetes and body mass index greater than 30. POSTOPERATIVE DIAGNOSIS: Deep transverse arrest with the baby in our right, occiput, transverse position. PROCEDURE: Repeat low transverse segment section. ANESTHESIA: Epidural with Duramorph. SURGEON: Afsaneh Ibarra MD NETWORKING TECHNICIAN: [employer]. FINDINGS: right occiput transverse was delivered with clear fluid, nuchal cord. Placenta was anterior low lying and intact with 3-vessel cord. There was no thinning of the lower uterine segment. It was actually quite thick at the time of the incision. No window. No excessive hemorrhage from the timing of induction. Placenta was delivered manually intact with a 3-vessel cord and sent to [facility] for harvest. COUNTS: Sponge, instrument, and needle counts were correct. ESTIMATED BLOOD LOSS: 500 mL PROCEDURE: After over 48 hours of Pitocin, it was apparent that the baby would not descend and decision was made to proceed with section. Preoperative tranexamic acid was given to reduce the risk of hemorrhage due to uterine atony. She received 2 grams of Ancef. She was taken to the back. Her epidural was reinforced. She was prepped and draped in the usual sterile fashion in the dorsal supine position with the weight off the vena cava. A timeout was performed with all in attendance. After assuring adequate analgesia, a Pfannenstiel incision was made through her prior incision and taken down through to the rectus fascia. The rectus fascia was incised in an elliptical fashion, taken off the rectus muscle. The rectus muscle was incised in the midline with care to avoid underlying structures. The uterus was very thick and there was no window or separation of prior scar. An incision was made into the uterus and this was extended bluntly in a vertical fashion. The placenta's edge was right at this incision. The infant was delivered with the findings as noted above. Cord had a delayed clamping and it was clamped x2. She was handed off to the neonatology team in attendance. The placenta cord blood was obtained and then the placenta was delivered manually with 3-vessel cord. The uterus was exteriorized, cleaned with a lap sponge closed with chromic in a running interlocking fashion with a second horizontal imbricating suture. It was replaced in the abdominal cavity, checked for hemostasis and then copious irrigation was used to remove clots and anything else. Then the rectus muscle was approximated carefully in a non-tension running stitch with care to avoid underlying structures. Then, the fascia was closed with 1 Vicryl in a running, non-interlocking fashion. The subcutaneous layer was closed with 3-0 plain and the skin was closed with 4-0 Vicryl on a Juventino needle. Steri-Strips and then a pressure dressing were applied. Mom and baby tolerated the procedure well, both were taken to the recovery room in stable condition. She will be watched for postoperative bleeding and exacerbation of her asthma from the prophylactic drugs. Afsnaeh Ibarra MD PPC/ct/ar , 07:40 PM , 07:51 PM
[2017-11-26 07:53] LABS: Baso % (Auto) 0.2 % (0.0-2.0); Eos # (Auto) 0.2 th/mm3 (0.0-0.4); Eos % (Auto) 1.1 % (0.0-4.0); Hemoglobin 8.3 gm/dL (11.6-15.3); Lymph # (Auto) 2.8 th/mm3 (1.0-4.8); Lymph % (Auto) 15.9 % (9.0-44.0); Mean Corpuscular HGB Conc 33.4 % (32.0-36.0); Mean Corpuscular Hemoglobin 26.2 pg (27.0-34.0); Mean Corpuscular Volume 78.5 fL (80.0-100.0); Mean Platelet Volume 8.2 fL (7.0-11.0); Mono # (Auto) 1.3 th/mm3 (0.0-0.9); Mono % (Auto) 7.5 % (0.0-8.0); Neut # (Auto) 13.3 th/mm3 (1.8-7.7); Neut % (Auto) 75.3 % (16.0-70.0); Platelet Count 247 th/mm3 (150-450); Red Blood Count 3.18 mil/mm3 (4.00-5.30); Red Cell Distribution Width 15.3 % (11.6-17.2); White Blood Count 17.6 th/mm3 (4.0-11.0)
--- NOTE | 2017-11-26 08:18 | P.PNOB ---
Subjective Post op day: 1 Interval history: Doing well, pain controlled, [place] in not yet ambulating, tolerating diet without nausea or vomiting. Objective Vital Signs/I&O: Vital Signs 11/25/17 08:30 11/25/17 08:33 11/25/17 09:00 Temperature 99.4 F 99.4 F Pulse Rate 103 H 104 H Respiratory Rate 20 20 Blood Pressure 115/58 L 113/58 L Pulse Oximetry 11/25/17 09:20 11/25/17 09:30 11/25/17 10:00 Temperature Pulse Rate 100 H 104 H 97 H Respiratory Rate 20 20 20 Blood Pressure 120/57 L 101/44 L Pulse Oximetry 11/25/17 10:25 11/25/17 10:27 11/25/17 10:51 Temperature 98.0 F Pulse Rate 92 H 84 Respiratory Rate 20 20 Blood Pressure 146/59 H 136/62 Pulse Oximetry 11/25/17 10:55 11/25/17 11:26 11/25/17 12:00 Temperature Pulse Rate 98 H 94 H 91 H Respiratory Rate 20 20 Blood Pressure 115/56 L 124/58 L Pulse Oximetry 11/25/17 12:20 11/25/17 12:30 11/25/17 12:55 Temperature Pulse Rate 94 H 111 H 103 H Respiratory Rate 20 Blood Pressure 120/60 126/75 Pulse Oximetry 11/25/17 13:00 11/25/17 13:10 11/25/17 13:29 Temperature Pulse Rate 108 H 107 H Respiratory Rate 20 20 Blood Pressure 144/71 H Pulse Oximetry 11/25/17 13:30 11/25/17 13:54 11/25/17 14:30 Temperature 98.3 F Pulse Rate 108 H 94 H Respiratory Rate 20 20 Blood Pressure 124/68 138/64 Pulse Oximetry 11/25/17 15:00 11/25/17 15:26 11/25/17 15:30 Temperature 98.2 F Pulse Rate 103 H 101 H Respiratory Rate 20 20 Blood Pressure 138/68 129/72 Pulse Oximetry 11/25/17 15:49 11/25/17 15:55 11/25/17 16:25 Temperature Pulse Rate 78 100 H 99 H Respiratory Rate 20 Blood Pressure 133/60 86/67 L Pulse Oximetry 11/25/17 16:26 11/25/17 16:33 11/25/17 16:55 Temperature Pulse Rate 106 H 103 H Respiratory Rate 20 20 Blood Pressure 133/79 Pulse Oximetry 11/25/17 17:03 11/25/17 17:27 11/25/17 17:32 Temperature Pulse Rate 127 H 105 H Respiratory Rate 20 20 20 Blood Pressure 142/64 H 151/73 H Pulse Oximetry 11/25/17 17:55 11/25/17 19:45 11/25/17 19:53 Temperature 99.1 F Pulse Rate 101 H 111 H 106 H Respiratory Rate 18 22 Blood Pressure 104/50 L Pulse Oximetry 11/25/17 20:00 11/25/17 20:15 11/25/17 20:29 Temperature 98.7 F Pulse Rate 108 H 112 H Respiratory Rate 18 16 16 Blood Pressure 126/65 112/54 L Pulse Oximetry 97 11/25/17 20:30 11/25/17 20:45 11/25/17 21:15 Temperature 98.4 F 98.5 F Pulse Rate 110 H 115 H 111 H Respiratory Rate 16 20 Blood Pressure 111/56 L 115/59 L 111/56 L Pulse Oximetry 11/25/17 22:00 11/26/17 00:00 11/26/17 00:06 Temperature 98.4 F Pulse Rate 100 H 97 H Respiratory Rate 18 20 Blood Pressure 122/72 Pulse Oximetry 95 11/26/17 02:00 11/26/17 04:00 11/26/17 04:38 Temperature 98.4 F Pulse Rate 89 105 H Respiratory Rate 16 18 Blood Pressure 81/36 L 109/44 L Pulse Oximetry 11/26/17 07:54 Temperature 97.5 F L Pulse Rate 96 H Respiratory Rate 20 Blood Pressure 116/68 Pulse Oximetry Intake & Output 11/25/17 11/26/17 11/26/17 18:59 06:59 18:59 Intake Total 1000 / 1000 Balance 1000 / 1000 Intake: IV 1000 / 1000 LR 1000 mL Inj 1,000 ML @ 125 1000 / 1000 mls/hr IV.CONT .Q8H [facility] Rx#: [id number] Result Diagrams: 11/26/17 07:30 11/23/17 14:45 Objective Remarks: GENERAL: Well-nourished, well-developed patient. CARDIOVASCULAR: Regular rate and rhythm without murmurs, gallops, or rubs. RESPIRATORY: Breath sounds equal bilaterally. No accessory muscle use. ABDOMEN/GI: Abdomen soft, non-tender, bowel sounds present. Dressing clean, dry and intact. Fundus: Firm, non-tender at umbilicus. GENITOURINARY: Light to moderate bleeding. EXTREMITIES: No cyanosis or edema, non-tender, without signs of DVT. Medications and IVs: Active Medications Acetaminophen (Tylenol) 650 mg PO Q4H PRN PRN Reason: HEADACHE Albuterol (Duoneb Neb (Prn)) 1 ampul NEB Q2HR NEB PRN PRN Reason: SHORTNESS OF BREATH Last Admin: 11/25/17 16:38 Dose: 1 ampul Albuterol (Albuterol Neb (Dorys)) 2.5 mg NEB Q4HR NEB DORYS Last Admin: 11/26/17 04:39 Dose: Not Given Citric Acid/Sodium Citrate (Sodium Citrate/Citric Acid Liq) 30 ml PO PET TECHNOLOGIST DORYS Stop: 11/27/17 15:29 Last Admin: 11/25/17 18:16 Dose: 30 ml Diphenhydramine HCl (Benadryl) 50 mg PO Q6H PRN PRN Reason: MILD TO MODERATE ITCHING Stop: 11/26/17 21:12 Diphenhydramine HCl (Benadryl Inj) 25 mg IV.PUSH Q6H PRN PRN Reason: MILD TO MODERATE ITCHING Stop: 11/26/17 21:12 Diphtheria/Pertussis/Tetanus Vacc (Boostrix Vaccine Inj) 0.5 ml IM .ONCE ONE Stop: 11/26/17 16:01 Guaifenesin/Codeine Phosphate (Robitussin Ac 200/20 Mg/10 Ml Liq) 5 ml PO Q4H PRN PRN Reason: COUGH Last Admin: 11/25/17 01:55 Dose: 5 ml Hydrocortisone Sodium Succinate (Solucortef Inj) 100 mg IV.PUSH ONCE PRN PRN Reason: SHORTNESS OF BREATH Lactated Ringer's (Lr 1000 Ml Inj) 1,000 mls @ 125 mls/hr IV.CONT .Q8H DORYS Last Admin: 11/26/17 04:06 Dose: 125 mls/hr Lactated Ringer's (Lr 1000 Ml Inj) 1,000 mls @ 3,000 mls/hr IV.SIG UNSCH PRN PRN Reason: compromise or epidural Sodium Chloride (Ns Inj) 1,000 mls @ 100 mls/hr IV.CONT .Q10H PRN PRN Reason: SEE LABEL COMMENTS Sodium Chloride (Ns Inj) 500 mls @ 1,000 mls/hr IV.SIG UNSCH PRN PRN Reason: SEE LABEL COMMENTS Oxytocin (Pitocin 30 Units/Ns 500 Ml Premix) 30 units in 500 mls @ 1 mls/hr IV.SIG TITRATE PRN; Protocol PRN Reason: For induction of labor Last Admin: 11/25/17 08:58 Dose: 1 milliunit/min, 1 mls/hr Cefazolin Sodium 1,000 mg/ (Sodium Chloride) 100 mls @ 200 mls/hr IV.SIG Q6H DORYS Last Admin: 11/26/17 06:33 Dose: Not Given Oxytocin (Pitocin 30 Units/Ns 500 Ml Premix) 30 units in 500 mls @ 100 mls/hr IV.SIG UNSCH PRN PRN Reason: Heavy bleeding Lactated Ringer's (Lr 1000 Ml Inj) 1,000 mls @ 100 mls/hr IV.CONT .Q10H DORYS Stop: 11/26/17 19:15 Tranexamic Acid 1,000 mg/ (Sodium Chloride) 110 mls @ 200 mls/hr IV.SIG ONCE DORYS Ibuprofen (Motrin) 800 mg PO Q8H PRN PRN Reason: cramping Last Admin: 11/26/17 00:25 Dose: 800 mg Ketorolac Tromethamine (Toradol Inj) 60 mg IM ONCE PRN PRN Reason: SEE LABEL COMMENTS Stop: 11/26/17 18:15 Lidocaine HCl (Xylocaine 1% Inj) 0.1 ml I-DERMAL PRN PRN PRN Reason: For IV start Stop: 11/26/17 15:25 Measles/Mumps/Rubella Vaccine Live (M-M-R Ii Vaccine Inj) 0.5 ml SQ .ONCE ONE Stop: 11/26/17 16:01 Mineral Oil (Muri-Lube Oil) 10 ml TOPICAL PRN PRN PRN Reason: PRN perineal massage Miscellaneous Information (Misc Nursing Information) 1 each OTHER UNSCH PRN PRN Reason: SEE LABEL COMMENTS Stop: 11/26/17 21:12 Miscellaneous Information (Misc Nursing Information) 1 each OTHER UNSCH PRN PRN Reason: SEE LABEL COMMENTS Stop: 11/26/17 21:12 Naloxone HCl (Narcan Inj) 0.1 mg IV.PUSH Q2M PRN PRN Reason: for opiate reversal Naloxone HCl (Narcan Inj) 0.4 mg IV.PUSH UNSCH PRN PRN Reason: SEE LABEL COMMENTS Stop: 11/26/17 21:12 Ondansetron HCl (Zofran Inj) 4 mg IV.PUSH Q6H PRN PRN Reason: NAUSEA OR VOMITING Last Admin: 11/26/17 00:28 Dose: 4 mg Oxycodone/Acetaminophen (Percocet 5/325 Mg) 1 tab PO Q4H PRN PRN Reason: PAIN SCALE 3 TO 5 Last Admin: 11/26/17 03:21 Dose: 1 tab Oxycodone/Acetaminophen (Percocet 5/325 Mg) 2 tab PO Q4H PRN PRN Reason: PAIN SCALE 6 TO 10 Sodium Chloride (Ns Flush) 2 ml IV.FLUSH BID DORYS Last Admin: 11/26/17 05:01 Dose: Not Given Sodium Chloride (Ns Flush) 2 ml IV.FLUSH PRN PRN PRN Reason: FLUSH AFTER USING IV ACCESS Assessment and Plan - Plan 27-year-old 002 status post repeat low transverse at 37 weeks due to arrest of dilation, was IOL for PREC. . 1. Postoperative day #1: Afebrile, vital signs stable, output appropriate, a.m. hemoglobin appreciated and appropriate, continue to advance, DC [place] and encourage ambulation. Anticipate discharge home in the next 48 hours. Discussed expectations, precautions and follow-up. -Female , new -[place] PDMP no matching pt identified 2. Preeclampsia without severe features: Blood pressures overnight mild range normotensive, discussed preeclampsia precautions, continue to trend blood pressures. 3. Asthma: Well controlled, rare use of albuterol 4. GDM A2: DC insulin, will need 2 hour GTT .
[2017-11-26] MEDS ORDERED: Iron Sucrose Inj 100 MG/5 ML Vial IV.PUSH ONE (09:26)
[2017-11-26] MEDS ORDERED: Iron Sucrose Inj 100 MG in Sodium Chlor 0.9% Inj 100 ML IV.SIG ONE (10:00)
[2017-11-26] MEDS ORDERED: Diphtheria/Tetanus/Pertussis Vaccine Inj 0.5 ML Syringe IM ONE (16:00)
[2017-11-26] MEDS ORDERED: Measles/Mumps/Rubella Vaccine Inj 0.5 ML Vial SQ ONE (16:00)
[2017-11-26] MEDS: Ibuprofen 400 MG Tablet PO PRN (19:29)
[2017-11-27 05:52] LABS: Hemoglobin 8.8 gm/dL (11.6-15.3); Mean Corpuscular HGB Conc 32.8 % (32.0-36.0); Mean Corpuscular Hemoglobin 26.1 pg (27.0-34.0); Mean Corpuscular Volume 79.6 fL (80.0-100.0); Mean Platelet Volume 8.3 fL (7.0-11.0); Platelet Count 275 th/mm3 (150-450); Red Blood Count 3.39 mil/mm3 (4.00-5.30); Red Cell Distribution Width 15.1 % (11.6-17.2); White Blood Count 16.9 th/mm3 (4.0-11.0)
[2017-11-27] MEDS: Ibuprofen 400 MG Tablet PO PRN ×3 (06:08→21:40)
--- NOTE | 2017-11-27 08:06 | P.PNOB ---
Subjective Post op day: 2 Interval history: Doing well except for cough. has been getting nebs. Objective Vital Signs/I&O: Vital Signs 11/26/17 09:00 11/26/17 12:25 11/26/17 17:05 Pulse Rate 100 H 93 H 96 H Respiratory Rate 18 18 20 Pulse Oximetry 94 L 11/26/17 19:00 11/26/17 21:50 11/27/17 01:00 Pulse Rate 80 88 Respiratory Rate 20 14 Pulse Oximetry 94 L 11/27/17 05:10 Pulse Rate 82 Respiratory Rate 14 Pulse Oximetry Result Diagrams: 11/27/17 05:20 11/23/17 14:45 Objective Remarks: GENERAL: Well-nourished, well-developed patient. CARDIOVASCULAR: Regular rate and rhythm without murmurs, gallops, or rubs. RESPIRATORYLeft lung w rhales No accessory muscle use. ABDOMEN/GI: Abdomen soft, non-tender, bowel sounds present. Incision: Clean, dry and intact. Fundus: Firm, non-tender at umbilicus. GENITOURINARY: Light to moderate bleeding. EXTREMITIES: No cyanosis or edema, non-tender, without signs of DVT. Medications and IVs: Active Medications Acetaminophen (Tylenol) 650 mg PO Q4H PRN PRN Reason: HEADACHE Albuterol (Duoneb Neb (Prn)) 1 ampul NEB Q2HR NEB PRN PRN Reason: SHORTNESS OF BREATH Last Admin: 11/27/17 05:05 Dose: 1 ampul Albuterol (Albuterol Neb (Dorys)) 2.5 mg NEB Q4HR NEB DORYS Last Admin: 11/27/17 00:57 Dose: 2.5 mg Citric Acid/Sodium Citrate (Sodium Citrate/Citric Acid Liq) 30 ml PO [employer] PILOT DORYS Stop: 11/27/17 15:29 Last Admin: 11/25/17 18:16 Dose: 30 ml Guaifenesin/Codeine Phosphate (Robitussin Ac 200/20 Mg/10 Ml Liq) 5 ml PO Q4H PRN PRN Reason: COUGH Last Admin: 11/25/17 01:55 Dose: 5 ml Hydrocortisone Sodium Succinate (Solucortef Inj) 100 mg IV.PUSH ONCE PRN PRN Reason: SHORTNESS OF BREATH Lactated Ringer's (Lr 1000 Ml Inj) 1,000 mls @ 125 mls/hr IV.CONT .Q8H DORYS Last Admin: 11/26/17 04:06 Dose: 125 mls/hr Lactated Ringer's (Lr 1000 Ml Inj) 1,000 mls @ 3,000 mls/hr IV.SIG UNSCH PRN PRN Reason: compromise or epidural Sodium Chloride (Ns Inj) 1,000 mls @ 100 mls/hr IV.CONT .Q10H PRN PRN Reason: SEE LABEL COMMENTS Sodium Chloride (Ns Inj) 500 mls @ 1,000 mls/hr IV.SIG UNSCH PRN PRN Reason: SEE LABEL COMMENTS Oxytocin (Pitocin 30 Units/Ns 500 Ml Premix) 30 units in 500 mls @ 1 mls/hr IV.SIG TITRATE PRN; Protocol PRN Reason: For induction of labor Last Admin: 11/25/17 08:58 Dose: 1 milliunit/min, 1 mls/hr Cefazolin Sodium 1,000 mg/ (Sodium Chloride) 100 mls @ 200 mls/hr IV.SIG Q6H DORYS Last Admin: 11/26/17 19:22 Dose: Not Given Oxytocin (Pitocin 30 Units/Ns 500 Ml Premix) 30 units in 500 mls @ 100 mls/hr IV.SIG UNSCH PRN PRN Reason: Heavy bleeding Tranexamic Acid 1,000 mg/ (Sodium Chloride) 110 mls @ 200 mls/hr IV.SIG ONCE DORYS Ibuprofen (Motrin) 800 mg PO Q8H PRN PRN Reason: CRAMPING Last Admin: 11/27/17 06:08 Dose: 800 mg Mineral Oil (Muri-Lube Oil) 10 ml TOPICAL PRN PRN PRN Reason: PRN perineal massage Naloxone HCl (Narcan Inj) 0.1 mg IV.PUSH Q2M PRN PRN Reason: for opiate reversal Ondansetron HCl (Zofran Inj) 4 mg IV.PUSH Q6H PRN PRN Reason: NAUSEA OR VOMITING Last Admin: 11/26/17 00:28 Dose: 4 mg Oxycodone/Acetaminophen (Percocet 5/325 Mg) 1 tab PO Q4H PRN PRN Reason: PAIN SCALE 3 TO 5 Last Admin: 11/26/17 03:21 Dose: 1 tab Oxycodone/Acetaminophen (Percocet 5/325 Mg) 2 tab PO Q4H PRN PRN Reason: PAIN SCALE 6 TO 10 Last Admin: 11/27/17 06:08 Dose: 2 tab Sodium Chloride (Ns Flush) 2 ml IV.FLUSH BID DORYS Last Admin: 11/27/17 00:54 Dose: 2 ml Sodium Chloride (Ns Flush) 2 ml IV.FLUSH PRN PRN PRN Reason: FLUSH AFTER USING IV ACCESS Assessment and Plan - Plan 27-year-old 002 status post repeat low transverse at 37 weeks due to arrest of dilation, was IOL for PREC. . 1. Postoperative day #2: Afebrile, vital signs stable, output appropriate, a.m. hemoglobin appreciated and appropriate, continue to advance, DC [place] and encourage ambulation. Anticipate discharge home in the next 48 hours. Discussed expectations, precautions and follow-up. -Female , new -Queried PDMP no matching pt identified 2. Preeclampsia without severe features: Blood pressures overnight mild range normotensive, discussed preeclampsia precautions, continue to trend blood pressures. 3. Asthma: Well controlled, rare use of albuterol. LRI - will start zpack. Continue nebs/albuterol prn. 4. GDM A2: DC insulin, will need 2 hour GTT .
[2017-11-27] MEDS: Azithromycin 250 MG Tablet PO SCH (09:50)
[2017-11-27] MEDS: guaiFENesin/Codeine Syrup 200 MG/20 MG 10 ML UDC PO PRN (21:56)
[2017-11-28] MEDS: guaiFENesin/Codeine Syrup 200 MG/20 MG 10 ML UDC PO PRN (04:47)
[2017-11-28] MEDS: Ibuprofen 400 MG Tablet PO PRN (04:48)
--- NOTE | 2017-11-28 08:44 | P.PNOB ---
Subjective Post op day: 3 Interval history: doing well, pain well controlled, ambulating and tolerating diet. min lochia Objective Vital Signs/I&O: Vital Signs 11/27/17 09:30 11/27/17 12:26 11/27/17 17:10 Pulse Rate 108 H 106 H 82 Respiratory Rate 18 18 20 Pulse Oximetry 96 11/27/17 20:43 11/27/17 23:59 11/28/17 03:40 Pulse Rate 88 94 H 88 Respiratory Rate 20 16 14 Pulse Oximetry Result Diagrams: 11/27/17 05:20 11/23/17 14:45 Objective Remarks: GENERAL: Well-nourished, well-developed patient. CARDIOVASCULAR: Regular rate and rhythm without murmurs, gallops, or rubs. RESPIRATORY: Breath sounds equal bilaterally. No accessory muscle use. ABDOMEN/GI: Abdomen soft, non-tender, bowel sounds present. Incision: Clean, dry and intact. Fundus: Firm, non-tender at umbilicus. GENITOURINARY: Light to moderate bleeding. EXTREMITIES: No cyanosis or edema, non-tender, without signs of DVT. Medications and IVs: Active Medications Acetaminophen (Tylenol) 650 mg PO Q4H PRN PRN Reason: HEADACHE Albuterol (Duoneb Neb (Prn)) 1 ampul NEB Q2HR NEB PRN PRN Reason: SHORTNESS OF BREATH Last Admin: 11/27/17 05:05 Dose: 1 ampul Albuterol (Albuterol Neb (Dorys)) 2.5 mg NEB Q4HR NEB DORYS Last Admin: 11/28/17 03:39 Dose: 2.5 mg Azithromycin (Zithromax) 250 mg PO DAILY DORYS Stop: 12/02/17 08:59 Last Admin: 11/27/17 09:50 Dose: 250 mg Guaifenesin/Codeine Phosphate (Robitussin Ac 200/20 Mg/10 Ml Liq) 5 ml PO Q4H PRN PRN Reason: COUGH Last Admin: 11/28/17 04:47 Dose: 5 ml Hydrocortisone Sodium Succinate (Solucortef Inj) 100 mg IV.PUSH ONCE PRN PRN Reason: SHORTNESS OF BREATH Lactated Ringer's (Lr 1000 Ml Inj) 1,000 mls @ 125 mls/hr IV.CONT .Q8H DORYS Last Admin: 11/26/17 04:06 Dose: 125 mls/hr Lactated Ringer's (Lr 1000 Ml Inj) 1,000 mls @ 3,000 mls/hr IV.SIG UNSCH PRN PRN Reason: compromise or epidural Sodium Chloride (Ns Inj) 1,000 mls @ 100 mls/hr IV.CONT .Q10H PRN PRN Reason: SEE LABEL COMMENTS Sodium Chloride (Ns Inj) 500 mls @ 1,000 mls/hr IV.SIG UNSCH PRN PRN Reason: SEE LABEL COMMENTS Oxytocin (Pitocin 30 Units/Ns 500 Ml Premix) 30 units in 500 mls @ 1 mls/hr IV.SIG TITRATE PRN; Protocol PRN Reason: For induction of labor Last Admin: 11/25/17 08:58 Dose: 1 milliunit/min, 1 mls/hr Cefazolin Sodium 1,000 mg/ (Sodium Chloride) 100 mls @ 200 mls/hr IV.SIG Q6H DORYS Last Admin: 11/26/17 19:22 Dose: Not Given Oxytocin (Pitocin 30 Units/Ns 500 Ml Premix) 30 units in 500 mls @ 100 mls/hr IV.SIG UNSCH PRN PRN Reason: Heavy bleeding Tranexamic Acid 1,000 mg/ (Sodium Chloride) 110 mls @ 200 mls/hr IV.SIG ONCE DORYS Ibuprofen (Motrin) 800 mg PO Q8H PRN PRN Reason: CRAMPING Last Admin: 11/28/17 04:48 Dose: 800 mg Mineral Oil (Muri-Lube Oil) 10 ml TOPICAL PRN PRN PRN Reason: PRN perineal massage Naloxone HCl (Narcan Inj) 0.1 mg IV.PUSH Q2M PRN PRN Reason: for opiate reversal Ondansetron HCl (Zofran Inj) 4 mg IV.PUSH Q6H PRN PRN Reason: NAUSEA OR VOMITING Last Admin: 11/26/17 00:28 Dose: 4 mg Oxycodone/Acetaminophen (Percocet 5/325 Mg) 1 tab PO Q4H PRN PRN Reason: PAIN SCALE 3 TO 5 Last Admin: 11/26/17 03:21 Dose: 1 tab Oxycodone/Acetaminophen (Percocet 5/325 Mg) 2 tab PO Q4H PRN PRN Reason: PAIN SCALE 6 TO 10 Last Admin: 11/28/17 04:47 Dose: 2 tab Sodium Chloride (Ns Flush) 2 ml IV.FLUSH BID DORYS Last Admin: 11/28/17 04:44 Dose: Not Given Sodium Chloride (Ns Flush) 2 ml IV.FLUSH PRN PRN PRN Reason: FLUSH AFTER USING IV ACCESS Assessment and Plan - Plan 27-year-old 002 status post repeat low transverse at 37 weeks due to arrest of dilation, was IOL for PREC. . 1. Postoperative day #3: Afebrile, vital signs stable, output appropriate, a.m. hemoglobin appreciated and appropriate, continue to advance, DC [place] and encourage ambulation. Anticipate discharge home today. Discussed expectations, precautions and follow-up. -Female , new -Queried PDMP no matching pt identified 2. Preeclampsia without severe features: Blood pressures overnight mild range to normotensive, discussed preeclampsia precautions, continue to trend blood pressures. f/u 1 wk in office 3. Asthma: Well controlled, rare use of albuterol. LRI -Rx for zpack. Continue nebs/albuterol prn. 4. GDM A2: DC insulin, will need 2 hour GTT .
[2017-11-28] MEDS: Azithromycin 250 MG Tablet PO SCH (11:18)
== END 2017-11-28 12:25 | disposition home or self-care (01) ==
LOC: H2E 13:59 → H1EA 11-25 20:54
PROVIDERS: ADMIT Obstetrics & Gynecology; ATTEND Obstetrics & Gynecology